=== PATIENT | female | born 1950 | race Caucasian/White ===

== ENCOUNTER 2019-05-05 07:44 | Outpatient (CLI) | payer MEDICARE, MEDICAID, SELFPAY ==
[2019-05-05 13:36] LABS: Alanine Aminotransferase 19 U/L (4-35); Albumin Level 3.4 g/dL (3.5-5.1); Alkaline Phosphatase 85 U/L (38-126); Aspartate Amino Transferase 27 U/L (14-36); Bilirubin,Total 0.3 mg/dL (0.2-1.3); Blood Urea Nitrogen 22 mg/dL (7-17); Calcium 8.5 mg/dL (8.4-10.2); Carbon Dioxide 31 mmol/L (22-30); Chloride 98 mmol/L (98-107); Cholesterol 111 mg/dL (0-200); Estimated Glomerular Filt Rate 44; Glucose 277 mg/dL (65-105); HDL Direct 33 mg/dL; Sodium 138 mmol/L (137-145); Triglycerides 126 mg/dL (<150)
[2019-05-05 13:39] LABS: Basophils Percent Auto 0.4 % (0.2-1.2); Eosinophils Absolute Auto 0.5 K/mm3 (0-0.3); Eosinophils Percent Auto 6.2 % (0-4.4); Hematocrit 37.9 % (37.0-47.0); Hemoglobin 10.9 g/dL (12.0-15.0); Immature Granulocyte Absolute 0.07 K/mm3 (0.00-0.031); Immature Granulocyte Percent A 0.9 % (0-0.5); Lymphocytes Absolute Auto 1.37 K/mm3 (0.9-3.2); Lymphocytes Percent Auto 16.7 % (18.3-44.2); Mean Corpuscular HGB Conc 28.8 g/dl (32-36); Mean Corpuscular Hemoglobin 27.6 pg (26-34); Mean Corpuscular Volume 95.9 fl (80-100); Mean Platelet Volume 10.9 fl (7.4-10.4); Monocytes Absolute Auto 0.6 K/mm3 (0.1-0.6); Monocytes Percent Auto 7.5 % (2.6-8.5); Neutrophils Absolute Auto 5.6 K/mm3 (1.3-6.7); Neutrophils Percent Auto 68.3 % (45.5-73.1); Platelet Count Result 162 k/mm3 (150-375); Red Blood Count 3.95 M/mm3 (4.2-5.4); Red Cell Distribution Width 14.6 % (11.5-14.5); White Blood Count 8.2 K/mm3 (4.5-10.0)
[2019-05-05 13:47] LABS: LDL Cholesterol Direct 69 mg/dL
[2019-05-05 13:52] LABS: Hemoglobin A1C 9.7 % (<5.7)
[2019-05-05 13:54] LABS: Free T4 Free Thyroxine 0.92 ng/mL (0.78-2.19)
[2019-05-06 14:23] LABS: Thyroid Stimulating Immunoglob <89 % baseline (<140)
[2019-05-07 03:06] LABS: Thyroid Peroxidase Antibodies <1 IU/mL (<9)
[2019-05-07 05:03] LABS: Triiodothyronine T3 Free 2.7 pg/mL (2.3-4.2)
== END 2019-05-05 07:45 | disposition home or self-care (01) ==
LOC: ANHWCLAB 07:48
PROVIDERS: PCP Internal Medicine Endocrinology, Diabetes & Metabolism; Referring Provider Internal Medicine Endocrinology, Diabetes & Metabolism
DX: E11.65 Type 2 diabetes mellitus with hyperglycemia (principal); E78.5 Hyperlipidemia, unspecified; E03.9 Hypothyroidism, unspecified
CPT/HCPCS: 36415; 80053; 80061; 83036; 84439; 84443; 84445; 84481; 85025; 86376

== ENCOUNTER 2019-10-17 13:32 | Outpatient (CLI) | payer MEDICARE, MEDICAID, SELFPAY ==
--- NOTE | ~2019-10-17 | MMUS_ITS ---
EXAMINATION: MM diagnostic adis BI w alexandra, US breast RT limited HISTORY: Right breast mass TECHNIQUE: Full field bilateral and spot right 3-D tomosynthesis images were performed and synthetic 2-D images were generated. CAD analysis was submitted and interpreted. High resolution targeted right breast ultrasound was performed. COMPARISON: 12/26/2016 bilateral diagnostic digital mammogram BREAST PARENCHYMAL COMPOSITION: There are scattered areas of fibroglandular density. FINDINGS: MAMMOGRAPHIC FINDINGS: On the left there is evidence of residual previously reported seroma far posteriorly in the central b reast. There is an irregular approximately 13 x 14.7 x 18.8 mm mass at mid to posterior depth in the inner a spect of the upper inner quadrant of the right breast not far from mid sagittal plane. The mammograph ic appearance is suspicious. No skin thickening or retraction or malignant calcification of either breast is evident. ULTRASOUND: There is an irregular hypoechoic mass at 12:00 4 cm from the nipple, corresponding to the mammographi c finding, measuring up to approximately 13 x 18 mm dimension, with posterior shadowing and some inte rnal vascularity on color flow imaging. IMPRESSION: 1. 1.8 cm suspicious mass at 12:00 4 cm from nipple. 2. Ultrasound-guided biopsy is recommended. BI-RADS category 4, suspicious findings. Dr. Hay telephoned the report and ultrasound-guided right breast biopsy recommendation to Dr. Randee cherry on 10/17/2019 at 1532 hours Reviewed, dictated and finalized at location A. IMPRESSION: 1. 1.8 cm suspicious mass at 12:00 4 cm from nipple. 2. Ultrasound-guided biopsy is recommended. BI-RADS category 4, suspicious findings. Dr. Hay telephoned the report and ultrasound-guided right breast biopsy recomm endation to Dr. Luis on 10/17/2019 at 1532 hours
== END 2019-10-17 13:33 | disposition home or self-care (01) ==
PROVIDERS: PCP Physician Assistant; Visit Provider Physician Assistant
DX: N63.10 Unspecified lump in the right breast, unspecified quadrant (principal); R92.8 Other abnormal and inconclusive findings on diagnostic imaging of breast
CPT/HCPCS: 76642; 77062; 77066; G0279

== ENCOUNTER 2019-11-03 09:20 | Outpatient (CLI) | payer MEDICARE, MEDICAID, SELFPAY ==
--- NOTE | ~2019-11-03 | US_ITS ---
EXAMINATION: US GUIDED NEEDLE BIOPSY DATE: 11/03/2019 11:37 CDT INDICATION: Irregular hypoechoic 13 x 18 mm mass at 12:00 4 cm from nipple TECHNIQUE AND FINDINGS: The risks and potential benefits of the procedure were discussed with the patient, and written inform ed consent was obtained. Timeout procedure was performed. After sterile preparation of the right luanne st, 1% lidocaine was utilized for local anesthesia. A 14G spring-loaded biopsy gun needle was advanced to the edge of the region of interest from a media l approach utilizing sonographic guidance. A total of three tissue core samples were obtained throug h the lesion. An Inrad tissue marker clip was then placed at the biopsy site. Hemostasis was achieve d. A sterile bandage was applied. The patient tolerated procedure well and there was no evidence of immediate complication. The patien t was given verbal instructions prior to departing from the department. A two view mammogram was perf ormed to document tissue marker clip placement. The tissue samples were submitted to surgical patholo gy for histologic analysis. IMPRESSION: 1. Successful ultrasound guided biopsy of left 12:00 breast mass with biopsy marker placement. Sandra hope refer to pathology report for histologic analysis. Reviewed, dictated and finalized at [facility]. Reviewed, dictated and finalized at location A. IMPRESSION: 1. Successful ultrasound guided biopsy of left 12:00 breast mass with biopsy m arker placement. Please refer to pathology report for histologic analysis.
--- NOTE | ~2019-11-03 | MM_ITS ---
MM post biopsy diagnostic RT DATE: 11/03/2019 11:09 INDICATION: Post ultrasound-guided biopsy mammogram TECHNIQUE: Digital LM and cc views of right breast following ultrasound-guided biopsy of 12:00 right breast lesion COMPARISON: None FINDINGS: There is a trigger biopsy marker in the upper mid right breast with some adjacent subcutane ous emphysema and soft tissue density which may be secondary to mild hematoma. IMPRESSION: Status post ultrasound-guided biopsy of 12:00 right breast lesion Reviewed, dictated and finalized at Location [facility]. Reviewed, dictated and finalized at location A.
== END 2019-11-03 09:21 | disposition home or self-care (01) ==
PROVIDERS: PCP Physician Assistant; Visit Provider Physician Assistant
DX: R92.8 Other abnormal and inconclusive findings on diagnostic imaging of breast (principal)
CPT/HCPCS: 19083; 77065; 88305; A4648

== ENCOUNTER 2019-11-29 08:03 | Outpatient (CLI) | payer MEDICARE, MEDICAID, SELFPAY ==
[2019-11-29 09:07] LABS: Alanine Aminotransferase 13 U/L (4-35); Albumin Level 4.1 g/dL (3.5-5.1); Alkaline Phosphatase 77 U/L (38-126); Anion Gap 7 mmol/L (8-16); Aspartate Amino Transferase 27 U/L (14-36); Bilirubin,Total 0.3 mg/dL (0.2-1.3); Blood Urea Nitrogen 29 mg/dL (7-17); Calcium 8.9 mg/dL (8.4-10.2); Carbon Dioxide 37 mmol/L (22-30); Chloride 95 mmol/L (98-107); Cholesterol 106 mg/dL (0-200); Estimated Glomerular Filt Rate 32; Glucose 156 mg/dL (65-105); HDL Direct 26 mg/dL; Potassium 4.6 mmol/L (3.4-5.0); Sodium 139 mmol/L (137-145); Triglycerides 127 mg/dL (<150)
[2019-11-29 09:21] LABS: LDL Cholesterol Direct 52 mg/dL
[2019-11-29 09:45] LABS: Free T4 Free Thyroxine 1.05 ng/mL (0.78-2.19)
[2019-11-29 09:48] LABS: Creatinine Urine 23.8 mg/dL
[2019-11-29 09:53] LABS: MALB Creatinine Ratio 106.7 mg/g (0-30); Microalbumin Urine Random 25.4 mg/L (0-16.7)
[2019-11-29 10:10] LABS: Hemoglobin A1C 7.7 % (<5.7)
== END 2019-11-29 08:04 | disposition home or self-care (01) ==
LOC: ANHLAB 08:12
PROVIDERS: PCP Physician Assistant; Visit Provider Internal Medicine Endocrinology, Diabetes & Metabolism
DX: E11.65 Type 2 diabetes mellitus with hyperglycemia (principal); E03.9 Hypothyroidism, unspecified
CPT/HCPCS: 36415; 80053; 80061; 82043; 83036; 84439; 84443

== ENCOUNTER 2020-03-25 13:17 | Emergency (ER) | payer MEDICARE, MEDICAID, SELFPAY ==
--- NOTE | ~2020-03-25 | XR_ITS ---
XR knee RT 3V 03/25/2020 13:48 Indication: Lateral knee pain Procedure: 3 views of the right knee Comparison: 01/10/2016 Findings: No acute fracture, subluxation or dislocation. There is moderate-severe osteoarthritis of t he right knee. There are large degenerative subchondral cyst involving the medial femoral condyle med ial tibial plateau. No significant joint effusion. Impression: 1: Severe osteoarthritis of the right knee with developing subchondral cyst medially. 2: No acute fracture. Reviewed, dictated and finalized at location A. ETING COMPLIANCE MANAGER Impression: 1: Severe osteoarthritis of the right knee with developing subchondral cyst med ially. 2: No acute fracture.
[2020-03-25 13:18] VITALS: BP 149/54; PULSE 89; RESP 17; TEMP 37; O2SAT 98
--- NOTE | 2020-03-25 13:43 | ED.LOWEXIN ---
HPI - Extremity Injury (Lower) General Chief Complaint: Extremity Injury, Lower Stated Complaint: WANTS X RAY Time Seen by Provider: 03/25/20 13:29 Source: patient Mode of arrival: EMS Limitations: no limitations History of Present Illness HPI Narrative: Patient 69-year-old female complain right knee pain, 8 out of 10, aching, nonradiating started yesterday after she slipped and fell landing on her right knee. Patient denies any head, neck, back, chest or any other extremity pain/injury. Patient denies any loss of consciousness. Related Data Home Medications Medication Instructions Recorded Confirmed albuterol sulfate [Ventolin HFA] 2 puff INHALATION PRN PRN 03/26/19 03/26/19 alprazolam 0.25 mg PO PRN PRN 03/26/19 03/26/19 lenny citrate-mag ox,aspart-D3 1 tablet PO DAILY 03/26/19 03/26/19 clopidogrel 75 mg PO DAILY 03/26/19 03/31/19 ferrous sulfate [Iron (ferrous 325 mg PO DAILY 03/26/19 03/26/19 sulfate)] furosemide 80 mg PO DAILY 03/26/19 03/26/19 insulin regular hum U-500 conc 25 unit SUBCUT BID 03/26/19 03/26/19 [Humulin R U-500 (Conc) Insulin] isosorbide mononitrate 120 mg PO DAILY 03/26/19 03/26/19 levothyroxine 88 mcg PO DAILY 03/26/19 03/26/19 meloxicam 15 mg PO DAILY 03/26/19 03/26/19 metoprolol succinate 50 mg PO DAILY 03/26/19 03/31/19 potassium chloride 10 meq PO DAILY 03/26/19 03/26/19 ropinirole 2 mg PO BID 03/26/19 03/26/19 rosuvastatin 40 mg PO DAILY 03/26/19 03/26/19 tiotropium bromide [Spiriva 1.25 mcg INHALATION DAILY 03/26/19 03/26/19 Respimat] Allergies Allergy/AdvReac Type Severity Reaction Status Date / Time adhesive tape Allergy Severe BLISTERS Verified 03/25/20 13:24 propoxyphene Allergy Severe Nausea and Verified 03/25/20 13:24 [From Twin-Tami] Vomiting Review of Systems Review of Systems: All systems reviewed & are unremarkable except as noted in HPI and below Constitutional: Constitutional: Denies body ache(s), Denies chills, Denies excessive sweating, Denies fatigue, Denies fever(s), Denies headache(s), Denies lethargy, Denies malaise, Denies weakness and Denies weight loss Eyes: Eyes: Denies blurry vision, Denies change in vision and Denies loss of vision ENT: Denies dizziness, Denies ear discharge, Denies headache(s), Denies lip swelling, Denies epistaxis, Denies nasal congestion, Denies neck pain, Denies throat swelling and Denies tongue swelling Cardiovascular: Cardiovascular: Denies chest pain, Denies chest pain at rest, Denies chest pain with activity, Denies diaphoresis, Denies rapid heart rate, Denies edema, Denies irregular heart rhythm, Denies lightheadedness, Denies palpitations, Denies dyspnea and Denies dyspnea on exertion Respiratory: Respiratory: Denies chest congestion, Denies cough, Denies hemoptysis, Denies dyspnea and Denies dyspnea on exertion Gastrointestinal: Gastrointestinal: Denies abdominal pain, Denies melena, Denies hematochezia, Denies diarrhea, Denies nausea, Denies vomiting and Denies hematemesis Musculoskeletal: Musculoskeletal: Denies neck pain and Denies numbness Neurologic: Denies Abnormal speech present, Denies abnormal gait, Denies confusion, Denies dizziness, Denies headache(s), Denies focal weakness, Denies loss of vision, Denies numbness, Denies Other visual disturbances, Denies Sensory deficit (Neuro) and Denies weakness Psychiatric: Psychiatric: Denies confusion, Denies depression, Denies auditory hallucinations, Denies homicidal ideation and Denies suicidal ideation Endocrine: Endocrine: Denies cold intolerance, Denies excessive sweating, Denies fatigue, Denies heat intolerance and Denies palpitations Hematologic/Lymphatic: Hematologic/Lymphatic: Denies easy bleeding and Denies easy bruising Allergic/Immunologic: Allergic/Immunologic: Denies lip swelling, Denies throat swelling and Denies tongue swelling [facility] Past Medical History Medical History (Updated 03/25/20 @ 14:53 by Antoni Nguyen MD) Anxiety Asthma CAD (coronary artery di
[2020-03-25] MEDS: HYDROcodone/acetaminophen (*CRX) 5-325 MG TABLET 1 TAB PO (14:31)
[2020-03-25] MEDS: KETOROLAC 30 MG/ML VIAL (*BKC) IM (14:31)
== END 2020-03-25 15:25 | disposition home or self-care (01) ==
PROVIDERS: Emergency Provider Emergency Medicine; PCP Physician Assistant
DX: S80.01XA Contusion of right knee, initial encounter (principal); W01.0XXA Fall on same level from slipping, tripping and stumbling without subsequent striking against object, initial encounter; I25.10 Atherosclerotic heart disease of native coronary artery without angina pectoris; I11.0 Hypertensive heart disease with heart failure; I50.9 Heart failure, unspecified; J44.9 Chronic obstructive pulmonary disease, unspecified; K21.9 Gastro-esophageal reflux disease without esophagitis; Z85.3 Personal history of malignant neoplasm of breast; Z86.718 Personal history of other venous thrombosis and embolism; E78.5 Hyperlipidemia, unspecified; E03.9 Hypothyroidism, unspecified; E11.40 Type 2 diabetes mellitus with diabetic neuropathy, unspecified; G47.33 Obstructive sleep apnea (adult) (pediatric); Z95.5 Presence of coronary angioplasty implant and graft; F41.9 Anxiety disorder, unspecified
CPT/HCPCS: 73562; 96372; 99283; A9270; J1885

== ENCOUNTER 2020-09-08 18:48 | Observation (INO) | payer MEDICARE, MEDICAID, SELFPAY ==
[2020-09-08] VITALS (8 sets, daily range): BP systolic 104–133; BP diastolic 42–74; PULSE 70–80; RESP 14–20; TEMP 36.8–37; O2SAT 94–100
--- NOTE | ~2020-09-08 | XR_ITS ---
EXAMINATION: XR chest 1V DATE: 09/08/2020 19:41 INDICATION: Chronic obstructive pulmonary disease. TECHNIQUE: A single frontal view of the chest was obtained. COMPARISON: Chest 2 views 12/13/2018, CT abdomen and pelvis 12/14/2018 FINDINGS: There are airspace opacities in the lower lung zones. No pleural effusion or pneumothorax. Cardiomegaly is noted. Median sternotomy wires and mediastinal surgical clips are seen, likely from p rior coronary artery bypass grafting. There are prominent paracardial fat pads. There are changes of anterior fusion procedure in cervical spine. There is a left shoulder arthroplasty. IMPRESSION: 1. Airspace opacities in the lower lung zones, consistent with atelectasis versus pneumonia. 2. Cardiomegaly. Reviewed, dictated and finalized at location A. IMPRESSION: 1. Airspace opacities in the lower lung zones, consistent with atelectasis vers us pneumonia. 2. Cardiomegaly.
--- NOTE | ~2020-09-08 | CT_ITS ---
EXAMINATION: CT cervical spine wo con DATE: 09/08/2020 19:28 INDICATION: Neck injury. TECHNIQUE: Computed tomography (CT) of the cervical spine was performed without intravenous contrast. Automated exposure control and iterative reconstruction technique were employed. The dose-length pro duct was 452.35 mGy-cm. COMPARISON: None FINDINGS: The lung apices demonstrate emphysema. There is 5 degrees levocurvature of cervical spine. There are changes of anterior fusion procedure from C4 to C6 with discectomies, healed interbody bone graft, and anterior plate and screws. There is mildly decreased disc height at C3-C4. The following disc levels are specifically discussed: C2-C3: There is no uncovertebral joint osteoarthritis. There is severe bilateral facet joint osteoart hritis. There is no neural foraminal stenosis. There is no central canal stenosis. C3-C4: There is severe bilateral uncovertebral joint osteoarthritis. There is severe bilateral facet joint osteoarthritis. There is mild bilateral neural foraminal stenosis. There is mild central canal stenosis. C4-C5: There is no uncovertebral joint hypertrophy. There is moderate left facet joint hypertrophy. T here is mild left neural foraminal stenosis. There is no central canal stenosis. C5-C6: There is mild bilateral uncovertebral joint hypertrophy. There is moderate bilateral facet jayne nt hypertrophy. There is mild bilateral neural foraminal stenosis. There is no central canal stenosis . C6-C7: There is no uncovertebral joint osteoarthritis. There is severe bilateral facet joint osteoart hritis. There is mild bilateral neural foraminal stenosis. There is no central canal stenosis. C7-T1: There is no uncovertebral joint osteoarthritis. There is severe bilateral facet joint osteoart hritis. There is mild right neural foraminal stenosis. There is no central canal stenosis. IMPRESSION: 1. No fracture. 2. Anterior fusion procedure from C4 to C6. 3. Mild cervical spondylosis. Reviewed, dictated and finalized at location A.
--- NOTE | ~2020-09-08 | XR_ITS ---
EXAMINATION: XR pelvis 1-2V DATE: 09/08/2020 19:40 INDICATION: Pelvic pain. TECHNIQUE: An anteroposterior view of the pelvis was obtained. COMPARISON: None. FINDINGS: Bone alignment is normal. No fracture. There is mild osteoarthritis of the hips. IMPRESSION: 1. Mild osteoarthritis of the hips. Reviewed, dictated and finalized at location A.
--- NOTE | ~2020-09-08 | CT_ITS ---
EXAMINATION: CT abdomen pelvis w con DATE: 09/11/2020 14:43 INDICATION: Anemia. TECHNIQUE: Computed tomography (CT) of the abdomen and pelvis was performed with 100 mm Omnipaque 350 intravenous contrast. Automated exposure control and iterative reconstruction technique were employe d. The dose-length product was 1489.81 mGy-cm. COMPARISON: CT abdomen and pelvis 01/13/2019, mammogram 10/17/2019 FINDINGS: The visualized portions of the lung bases demonstrate mild atelectasis. There is a 2.4 cm n odule in right lower lobe. A calcified right lung nodule and calcified right hilar and mediastinal ly mph nodes are consistent with old granulomatous disease. Cardiomegaly is noted. There are coronary ar helene calcifications. No pericardial effusion. Partially visualized is a 5.0 x 3.7 cm mass in left chary ast. Median sternotomy wires are noted. The liver and spleen are normal. There are changes of cholecy stectomy. The pancreas and right adrenal gland are normal. There is a 13 mm mass in left adrenal glan d, stable from 01/13/2019, likely an adenoma. There is cortical thinning of the kidneys. There are no dilated loops of bowel. The appendix not visualized. There are changes of subxiphoid ventral hernia repair. There is chronic sternal dehiscence. There are no pathologically enlarged lymph nodes. There is no free intraperitoneal fluid. Pelvic floor relaxation is noted. There is soft tissue attenuation in the subcutaneous fat in the left flank, likely hematoma. There is widespread fat stranding of the body wall, likely edema and inflammation/scarring. There is severe lumbar spondylosis. There is moder ate lumbar spondylosis. IMPRESSION: 1. 2.4 cm nodule in right lung lower lobe, consistent with primary bronchogenic carcinoma versus meta static disease. 2. Partially visualized 5.0 x 3.7 cm mass in left breast, new from 10/17/2019. Ultrasound is recommend ed. 3. Subcutaneous hematoma in left flank. Reviewed, dictated and finalized at location A. IMPRESSION: 1. 2.4 cm nodule in right lung lower lobe, consistent with primary bronchogenic carcinoma versus metastatic disease. 2. Partially visualized 5.0 x 3.7 cm mass in left breast, new from 10/17/2019. U ltrasound is recommended. 3. Subcutaneous hematoma in left flank.
--- NOTE | ~2020-09-08 | US_ITS ---
US breast LT limited 09/13/2020 12:41 Indication: Left breast mass seen on recent CT examination Procedure: High-resolution Limited ultrasound of the left breast Comparison: No prior studies for comparison. Findings: At 12:00, 4 cm from the nipple, there is a complex hypoechoic mass measuring 4.5 x 3.9 x 3. 4 cm with mixed posterior attenuation and no significant internal vascularity. Impression: 1: Complex left breast mass measuring 4.5 cm greatest dimension. Diagnostic bilateral mammogram recom mended for complete evaluation. BI-RADS CATEGORY 0 - INCOMPLETE STUDY, NEED ADDITIONAL IMAGING EVALUATION. Reviewed, dictated and finalized at location A. Impression: 1: Complex left breast mass measuring 4.5 cm greatest dimension. Diagnostic hair ateral mammogram recommended for complete evaluation. BI-RADS CATEGORY 0 - INCOMPLETE STUDY, NEED ADDITIONAL IMAGING EVALUATION.
--- NOTE | ~2020-09-08 | CT_ITS ---
EXAMINATION: CT brain wo con DATE: 09/08/2020 19:28 INDICATION: Head injury. TECHNIQUE: Computed tomography (CT) of the head was performed without intravenous contrast. The mA wa s adjusted according to patient size. Iterative reconstruction technique was employed. The dose-lengt h product was 452.35 mGy-cm. COMPARISON: Head CT 08/29/2014 FINDINGS: There is no intracranial hemorrhage, acute infarction, or abnormal intracranial mass lesion . The ventricles are normal in size. There is mild mucosal thickening in the paranasal sinuses. There are likely changes of ocular lens replacement surgeries. There is a right mastoid effusion. IMPRESSION: 1. Normal brain. Reviewed, dictated and finalized at location A. IMPRESSION: 1. Normal brain.
--- NOTE | ~2020-09-08 | XR_ITS ---
EXAMINATION: XR knee LT min 4V DATE: 09/08/2020 19:40 INDICATION: Left knee pain. TECHNIQUE: 4 views of left knee were obtained. COMPARISON: Left knee radiographs 01/10/16 FINDINGS: There is varus angulation at the knee. No fracture. There is severe osteoarthritis of media l compartment, mild osteoarthritis of lateral compartment, moderate osteoarthritis of patellofemoral compartment. No knee joint effusion. IMPRESSION: 1. Severe left knee osteoarthritis. Reviewed, dictated and finalized at location A.
--- NOTE | ~2020-09-08 | CT_ITS ---
EXAMINATION: CT diagnostic chest wo con DATE: 09/12/2020 13:58 INDICATION: Right lung mass TECHNIQUE: Computed tomography (CT) of the chest was performed without intravenous contrast. The dose -length product was 810.48 mGy-cm. Automated exposure control and iterative reconstruction technique were employed. COMPARISON: CT chest dated 04/25/[address] abdomen dated 09/11/2020 FINDINGS: There is a mass in the left breast measuring 4.8 x 4.4 x 3.8 cm, concerning for breast canc er. Mediastinal lymphadenopathy, for instance right paratracheal lymph node measures 11 mm short axis , image 40. There are calcified subcarinal lymph nodes, consistent with chronic granulomatous disease . Cardiomegaly. There is moderate emphysema. There is a right lower lobe mass measuring 2.9 x 1.8 cm, concerning for bronchogenic carcinoma. Small pleural effusions. There is dependent airspace consolid ation in the lower lobes. Cannot exclude superimposed pneumonia. There are surgical changes in the up per abdomen, consistent with ventral abdominal wall hernia. There are cholecystectomy clips. There ar e a few scattered small 2 mm nodules bilaterally, likely benign. No endobronchial lesions. No pneumot horax. IMPRESSION: 1. 2.9 cm right lower lobe mass, concerning for bronchogenic carcinoma versus metastatic disease. 2: Left breast mass measuring 4.8 cm, suspicious for carcinoma. Recommend correlation with diagnostic mammogram and ultrasound when the patient's condition permits. 3: Bilateral lower lobe consolidation which likely represents atelectasis and/or superimposed pneumo jerson. 4: Small pleural effusions. 5: Emphysema. 6: Nonspecific mediastinal lymphadenopathy, likely reactive. Reviewed, dictated and finalized at location A. IMPRESSION: 1. 2.9 cm right lower lobe mass, concerning for bronchogenic carcinoma versus m etastatic disease. 2: Left breast mass measuring 4.8 cm, suspicious for carcinoma. Recommend corre lation with diagnostic mammogram and ultrasound when the patient's condition pe rmits. 3: Bilateral lower lobe consolidation which likely represents atelectasis and/ or superimposed pneumonia. 4: Small pleural effusions. 5: Emphysema. 6: Nonspecific mediastinal lymphadenopathy, likely reactive.
--- NOTE | 2020-09-08 18:56 | ECG_ITS ---
Measurements Intervals [place] Rate: 66 P: 88 ME: 182 QRS: -3 QRSD: 85 T: 69 QT: 394 QTc: 416 Interpretive Statements SINUS RHYTHM DELAYED PRECORDIAL R/S TRANSITION BASELINE ARTIFACT- I, II, AVR, AVL V2, V5 BORDERLINE ECG Electronically Signed On 09-08-2020 21:40:10 CDT by Jelani Mckinnon D.O.
--- NOTE | 2020-09-08 19:09 | ED.SOB ---
HPI - SOB/Dyspnea General Chief Complaint: Shortness of Breath/Dyspnea Stated Complaint: anemic Source: RN notes reviewed History of Present Illness HPI Narrative: Patient presents emergency department from home via EMS for weakness. Patient states he was feeling weak for the past 2 days. States that she has a history of anemia and is required blood transfusions before in the past and feels the same as prior states that her daughter also felt she was more pale today patient states she has been able to get up and around like she normally does states that she is normally on 3 L nasal cannula at all times. Patient states she did fall approximately 4 days ago injuring her left knee she does note some neck pain but denies any loss of consciousness denies any chest pain. Does note increased shortness of breath with ambulation Related Data Home Medications Medication Instructions Recorded Confirmed albuterol sulfate [Ventolin HFA] 2 puff INHALATION PRN PRN 03/26/19 03/26/19 alprazolam 0.25 mg PO PRN PRN 03/26/19 03/26/19 lenny citrate-mag ox,aspart-D3 1 tablet PO DAILY 03/26/19 03/26/19 clopidogrel 75 mg PO DAILY 03/26/19 03/31/19 ferrous sulfate [Iron (ferrous 325 mg PO DAILY 03/26/19 03/26/19 sulfate)] furosemide 80 mg PO DAILY 03/26/19 03/26/19 insulin regular hum U-500 conc 25 unit SUBCUT BID 03/26/19 03/26/19 [Humulin R U-500 (Conc) Insulin] isosorbide mononitrate 120 mg PO DAILY 03/26/19 03/26/19 levothyroxine 88 mcg PO DAILY 03/26/19 03/26/19 meloxicam 15 mg PO DAILY 03/26/19 03/26/19 metoprolol succinate 50 mg PO DAILY 03/26/19 03/31/19 potassium chloride 10 meq PO DAILY 03/26/19 03/26/19 ropinirole 2 mg PO BID 03/26/19 03/26/19 rosuvastatin 40 mg PO DAILY 03/26/19 03/26/19 tiotropium bromide [Spiriva 1.25 mcg INHALATION DAILY 03/26/19 03/26/19 Respimat] Allergies Allergy/AdvReac Type Severity Reaction Status Date / Time adhesive tape Allergy Severe BLISTERS Verified 09/08/20 18:59 propoxyphene AdvReac Severe Nausea and Verified 09/08/20 20:33 [From Darvocet-N] Vomiting Review of Systems Review of Systems: Narrative: Gen.: Denies fevers or chills Eyes: Denies eye pain or visual change ENT: Denies congestion Respiratory: Reports shortness of breath with ambulation CV: Denies chest pain or palpitations GI: Denies abdominal pain nausea, emesis or diarrhea Musculoskeletal: Denies back pain or muscle pain Neuro: Reports weakness Skin: Denies rash Except as documented, all other systems reviewed and negative [facility] Past Medical History Medical History Anxiety Asthma CAD (coronary artery disease) CHF (congestive heart failure) COPD (chronic obstructive pulmonary disease) Diabetes type 2, controlled FH: ALMITA-BSO (total abdominal hysterectomy and bilateral salpingo-oophorectomy) GERD (gastroesophageal reflux disease) History of hearing loss History of home oxygen therapy Hx of breast cancer Hx of cataract Hx of deep venous thrombosis Hyperlipidemia Hypertension Hypothyroidism Neuropathy TOR (obstructive sleep apnea) Surgical History Surgical History (Updated 03/31/19 @ 11:08 by Kanwal Sheppard, GEODETIC ENGINEER) H/O rectocele repair History of coronary artery stent placement History of tubal ligation Hx of CABG Hx of CABG Hx of carpal tunnel repair Hx of cholecystectomy Hx of hernia repair Hx of lumpectomy Status post cervical spinal fusion Family History Family History (Updated 01/10/16 @ 14:14 by DOCTOR UNKNOWN) Father Family history of malignant neoplasm of stomach Family history of malignant neoplasm Malignant neoplasm of prostate Family history of heart disease in male family member before age 55 Mother Family history of lung cancer Family history of diabetes mellitus in first degree relative Family history of heart disease in male family member before age 55 Sibling Family history of heart disease in male family member before age 55 Oth
--- NOTE | 2020-09-08 19:17 | PC.NURSE ---
Pt. to ct. no urine or blood obtained.
[2020-09-08 19:53] LABS: Basophils Percent Auto 0.3 % (0.2-1.2); Eosinophils Absolute Auto 0.3 K/mm3 (0-0.3); Eosinophils Percent Auto 4.3 % (0-4.4); Hematocrit 23.5 % (37.0-47.0); Immature Granulocyte Absolute 0.02 K/mm3 (0.00-0.031); Immature Granulocyte Percent A 0.3 % (0-0.5); Lymphocytes Absolute Auto 1.55 K/mm3 (0.9-3.2); Lymphocytes Percent Auto 20.7 % (18.3-44.2); Mean Corpuscular HGB Conc 27.2 g/dl (32-36); Mean Corpuscular Hemoglobin 25.7 pg (26-34); Mean Corpuscular Volume 94.4 fl (80-100); Mean Platelet Volume 9.5 fl (7.4-10.4); Monocytes Absolute Auto 0.6 K/mm3 (0.1-0.6); Monocytes Percent Auto 7.7 % (2.6-8.5); Neutrophils Percent Auto 66.7 % (45.5-73.1); Platelet Count Result 147 k/mm3 (150-375); Red Blood Count 2.49 M/mm3 (4.2-5.4); Red Cell Distribution Width 13.2 % (11.5-14.5); White Blood Count 7.5 K/mm3 (4.5-10.0)
[2020-09-08 20:04] LABS: Prothrombin Time 13.8 Seconds (11.1-14.7)
[2020-09-08 20:05] LABS: Partial Thromboplastin Time 28.4 SECONDS (22.3-36.8)
[2020-09-08 20:06] LABS: Alanine Aminotransferase 13 U/L (4-35); Albumin Level 3.6 g/dL (3.5-5.1); Alkaline Phosphatase 72 U/L (38-126); Anion Gap 3 mmol/L (8-16); Aspartate Amino Transferase 20 U/L (14-36); Bilirubin,Total 0.5 mg/dL (0.2-1.3); Blood Urea Nitrogen 21 mg/dL (7-17); Calcium 9.2 mg/dL (8.4-10.2); Carbon Dioxide 37 mmol/L (22-30); Chloride 100 mmol/L (98-107); Estimated Glomerular Filt Rate 49; Glucose 120 mg/dL (65-105); Hemoglobin 6.4 g/dL (12.0-15.0); Potassium 5.3 mmol/L (3.4-5.0); Sodium 140 mmol/L (137-145)
[2020-09-08 20:08] LABS: Hypochromasia 1+ (NORMAL); Ovalocytes 1+ (NORMAL); Platelet Estimate Adequate (Adequate)
[2020-09-08 20:32] LABS: Add Urine Microscopic? YES; Appearance Urine Cloudy (Clear); Bacteria Urine Trace /hpf; Bilirubin Urine Negative (Negative); Blood Urine Negative (Negative); Color Urine Yellow (Yellow); Glucose Urine UA Negative (Negative); Ketones Urine Negative (Negative); Leukocyte Esterase Ur 3+ LEU/UL (Negative); Mucus Urine Rare /lpf; Nitrate Urine Positive (Negative); Protein Urine 1+ mg/dL (Negative); Specific Grav Ur 1.019 (1.001-1.035); Squamous Epithelial Cell Urine Rare /hpf (Few); Urobilinogen Urine Negative mg/dL (<2.0); WBC Clumps Urine Present /HPF; WBC Urine >75 /hpf
--- NOTE | 2020-09-08 22:07 | PM.IMHP ---
H&P: HPI History of Present Illness Date/Time: 09/08/20 22:07 Chief Complaint: Fall. Narrative: This is a 70-year-old female with past medical history significant for coronary artery disease status post coronary artery bypass graft in 2007, congestive heart failure coma type 2 diabetes mellitus, obstructive sleep apnea, chronic anemia, Hypertension, COPD. Patient presented to the emergency room via EMS after she has been feeling weak for several days now and she had a fall when she was trying to reach out for the bathroom was at the house called EMS patient was brought to the emergency room there was no loss of consciousness. She states that she has been feeling very weak fatigued with shortness of breath and dizzy and lightheaded for the last few days or so no chest pain preliminary workup was significant for a hemoglobin of 6 she has had blood transfusions in the past and states that her hemoglobin also see late and that she had looked more pale than her usual according to daughter daughter visited her. Patient has been placed in observation status for blood transfusion. Review of Systems Review of Systems: Narrative: Generalized weakness fatigue pallor fall Constitutional: Constitutional: Denies chills, Reports fatigue, Denies fever(s), Reports lethargy and Reports weakness Eyes: Eyes: Denies change in vision ENT: Denies nasal congestion, Denies nasal discharge and Denies nasal obstruction Cardiovascular: Cardiovascular: Denies irregular heart rhythm, Reports lightheadedness, Denies radiating jaw, neck or arm pain, Denies palpitations and Denies dyspnea on exertion Respiratory: Respiratory: Denies chest congestion Gastrointestinal: Gastrointestinal: Denies melena, Denies hematochezia, Reports constipation, Denies nausea and Denies vomiting Genitourinary: Genitourinary: Reports no additional female genitourinary complaints Musculoskeletal: Musculoskeletal: Reports no additional musculoskeletal complaints Integumentary/Breasts: Skin/Breast: Denies rash Neurologic: Denies focal weakness and Denies Sensory deficit (Neuro) Psychiatric: Psychiatric: Reports no additional psychiatric complaints Endocrine: Endocrine: Reports no additional endocrine complaints Hematologic/Lymphatic: Hematologic/Lymphatic: Reports no additional hematologic/lymphatic complaints Allergic/Immunologic: Allergic/Immunologic: Reports no additional allergic/immunologic complaints PMFSH Past Medical History Medical History (Updated 09/09/20 @ 01:26 by Genoveva Foster MD) Anxiety Asthma CAD (coronary artery disease) CHF (congestive heart failure) COPD (chronic obstructive pulmonary disease) Diabetes type 2, controlled FH: ALMITA-BSO (total abdominal hysterectomy and bilateral salpingo-oophorectomy) GERD (gastroesophageal reflux disease) History of hearing loss History of home oxygen therapy Hx of breast cancer Hx of cataract Hx of deep venous thrombosis Hyperlipidemia Hypertension Hypothyroidism Neuropathy TOR (obstructive sleep apnea) Surgical History Surgical History (Updated 03/31/19 @ 11:08 by Kanwal Sheppard APRN) H/O rectocele repair History of coronary artery stent placement History of tubal ligation Hx of CABG Hx of CABG Hx of carpal tunnel repair Hx of cholecystectomy Hx of hernia repair Hx of lumpectomy Status post cervical spinal fusion Family History Family History Father Family history of malignant neoplasm of stomach Family history of malignant neoplasm Malignant neoplasm of prostate Family history of heart disease in male family member before age 55 Mother Family history of lung cancer Family history of diabetes mellitus in first degree relative Family history of heart disease in male family member before age 55 Sibling Family history of heart disease in male family member before age 55 Other Cerebrovascular accident Diabetes mellitus Family hist
--- NOTE | 2020-09-08 22:17 | ADMGEN ---
This patient, Madison Celis, was admitted to [facility] Surg Room 323-02. Patient/family oriented to hospital policies and general routines including ID bracelet, bed and alarms, visiting hours, pain management, procedures, bathroom and other care routines, personal items, smoking policy, room service/diet, and visiting hours. Information on how to activate the Rapid Response Team has been discussed. Patient/Family are encouraged to report perceived risks to care and to ask questions if they do not understand what they are told or what they should do.
[2020-09-08] MEDS: SODIUM CHLORIDE 0.9% IV 250 ML 30 ML IV CONT (22:55)
[2020-09-09] VITALS (16 sets, daily range): BP systolic 104–148; BP diastolic 40–63; PULSE 70–88; RESP 18–20; TEMP 36.1–36.8; O2SAT 95–100
[2020-09-09] MEDS: ALPRAZolam (*CRX) 0.25 MG TABLET PO ×2 (00:42→20:25)
[2020-09-09] MEDS: rOPINIRole HCL 1 MG TABLET 3 MG PO ×2 (00:42→20:19)
[2020-09-09] MEDS: GABAPENTIN 300 MG CAPSULE PO ×4 (00:42→20:19)
[2020-09-09] MEDS: SODIUM CHLORIDE 0.9% IV 250 ML 30 ML (04:18)
[2020-09-09] MEDS: LEVOTHYROXINE SODIUM 100 MCG TABLET PO (04:19)
[2020-09-09] MEDS: ACETAMINOPHEN 500 MG TABLET 1000 MG PO (06:49)
[2020-09-09 08:35] LABS: Glucose Point of Care 156 mg/dl (65-105)
[2020-09-09 09:21] LABS: Basophils Percent Auto 0.3 % (0.2-1.2); Eosinophils Absolute Auto 0.3 K/mm3 (0-0.3); Eosinophils Percent Auto 3.8 % (0-4.4); Hemoglobin 8.7 g/dL (12.0-15.0); Immature Granulocyte Absolute 0.03 K/mm3 (0.00-0.031); Immature Granulocyte Percent A 0.4 % (0-0.5); Lymphocytes Absolute Auto 1.09 K/mm3 (0.9-3.2); Lymphocytes Percent Auto 15.4 % (18.3-44.2); Mean Corpuscular Hemoglobin 27.5 pg (26-34); Mean Corpuscular Volume 91.8 fl (80-100); Mean Platelet Volume 9.9 fl (7.4-10.4); Monocytes Absolute Auto 0.5 K/mm3 (0.1-0.6); Monocytes Percent Auto 6.3 % (2.6-8.5); Neutrophils Absolute Auto 5.2 K/mm3 (1.3-6.7); Neutrophils Percent Auto 73.8 % (45.5-73.1); Platelet Count Result 124 k/mm3 (150-375); Red Blood Count 3.16 M/mm3 (4.2-5.4); Red Cell Distribution Width 13.5 % (11.5-14.5); White Blood Count 7.1 K/mm3 (4.5-10.0)
--- NOTE | 2020-09-09 10:01 | WPDGICN ---
GI Consult Note Consult date/time: 09/09/20 10:01 HPI: Reason for consultation is anemia. This very pleasant lady seen in consultation at the request of the hospitalist. The patient was examined the chart review. Impression: Here very pleasant lady with anemia. The anemia may be multifactorial in origin. GI blood loss certainly needs to be excluded. She has a history of colonic AVMs which may be response for the blood loss. Her rectal bleeding is most likely perianal in origin. A small bowel source of blood loss needs to be excluded. Meloxicam use may also contribute to blood loss. Thrombocytopenia. History of adenomatous colon polyps. GERD. This is well controlled on medication. Anxiety. CAD. Status post stent placement. CHF. COPD. Diabetes mellitus. HTN. HLD. Hypothyroid. Neuropathy. History of breast cancer. Status post surgery and radiation treatment. Morbid obesity. Venous stasis. RLS. Recommendation: Anemia workup. Continue PPI. Will proceed with EGD with enteroscopy and colonoscopy. History: This very pleasant lady is well known to myself. She has a past medical history as mentioned above. Patient recently has been complaining of increased shortness of breath and dyspnea exertion. She had been having chills and weakness. The patient was found to have significant anemia. The anemia was more than her baseline. The patient denies any nausea, vomiting or hematemesis. She denies any dysphagia odynophagia. She has history reflux disease which is well controlled with medication. Patient had an EGD back in March of 2019. At that time she had some mild esophagitis and gastritis. She was H pylori negative. She also had a colonoscopy. She was noted to have some adenomatous colon polyps and some AVMs that required APC ablation. The patient at this time would report occasional rectal bleeding. It consisted of bright red blood per rectum when she would have straining. She has intensity constipation at times. Significant fever or weight loss night. She denies any melena. GI consultation was obtained for evaluation. The patient's review systems otherwise unremarkable except for the shortness of breath, dyspnea on exertion and weakness. Physical examination: General: very pleasant patient in no acute distress. HEENT: Head was normocephalic sclerae is clear mouth without masses neck was supple. Heart: Rate rhythm regular without S3 or S4. Lungs: Decreased breath sounds bilaterally. Abdomen: Soft with no guarding or rigidity. Bowel sounds were active. Obese. Neurologic: Cranial nerves 2 through 12 intact. No focal defects. No clonus. Musculoskeletal system: Revealed no joint tenderness or swelling no muscle atrophy. Extremities: Reveal no significant edema. Venous stasis changes. Skin: Warm and dry with normal turgor. Mental status: intact. Patient is alert and oriented. Thank you for allowing me to participate in the care of this interesting patient. Review of Systems Review of Systems: All systems reviewed & are unremarkable except as noted in HPI and below PMFSH Past Medical History Medical History (Updated 09/09/20 @ 10:06 by Stanford Rodríguez DO) Adenomatous colon polyp Anxiety Asthma AVM (arteriovenous malformation) of colon CAD (coronary artery disease) CHF (congestive heart failure) COPD (chronic obstructive pulmonary disease) Diabetes type 2, controlled DVT (deep venous thrombosis) GERD (gastroesophageal reflux disease) History of hearing loss History of home oxygen therapy Hx of breast cancer Hyperlipidemia Hypertension Hypothyroidism Neuropathy TOR (obstructive sleep apnea) RLS (restless legs syndrome) Venous stasis Surgical History Surgical History (Updated 09/09/20 @ 07:18 by Stanford Rodríguez DO) H/O colonoscopy H/O esophagogastroduodenoscopy H/O rectocele repair History of coronary artery stent placement History of tubal ligation Hx of CABG Hx of CAB
[2020-09-09 10:39] LABS: Folic Acid 6.8 ng/mL (2.76->20)
[2020-09-09 11:37] LABS: Hematocrit 29.9 % (37.0-47.0); Hemoglobin 8.8 g/dL (12.0-15.0); Immature Platelet Fraction Pct 4.7 % (0.9-11.2); Mean Corpuscular HGB Conc 29.4 g/dl (32-36); Mean Corpuscular Hemoglobin 26.7 pg (26-34); Mean Corpuscular Volume 90.9 fl (80-100); Mean Platelet Volume 10.7 fl (7.4-10.4); Platelet Count Result 150 k/mm3 (150-375); Red Blood Count 3.29 M/mm3 (4.2-5.4); Red Cell Distribution Width 13.6 % (11.5-14.5); White Blood Count 8.3 K/mm3 (4.5-10.0)
[2020-09-09 11:41] LABS: Cholesterol 106 mg/dL (0-200); HDL Direct 43 mg/dL; Lactate Dehydrogenase 320 U/L (313-618); Triglycerides 125 mg/dL (<150)
[2020-09-09 11:52] LABS: LDL Cholesterol Direct 38 mg/dL
[2020-09-09 12:01] LABS: Anion Gap 4 mmol/L (8-16); Blood Urea Nitrogen 17 mg/dL (7-17); Calcium 8.8 mg/dL (8.4-10.2); Carbon Dioxide 36 mmol/L (22-30); Chloride 97 mmol/L (98-107); Estimated Glomerular Filt Rate 55; Glucose 175 mg/dL (65-105); Magnesium 1.7 mg/dL (1.6-2.3); Phosphorus 3.9 mg/dL (2.5-4.5); Potassium 5.4 mmol/L (3.4-5.0); Sodium 137 mmol/L (137-145)
[2020-09-09 12:28] LABS: Glucose Point of Care 175 mg/dl (65-105)
[2020-09-09 12:30] LABS: Iron 68 ug/dL (37-170)
[2020-09-09 12:39] LABS: Percent Iron Saturation 16 % (20-50)
[2020-09-09 12:46] LABS: Folic Acid 7.8 ng/mL (2.76->20)
[2020-09-09 12:48] LABS: Free T4 Free Thyroxine 1.31 ng/mL (0.78-2.19)
[2020-09-09] MEDS: METOPROLOL SUCCINATE EXT REL 50 MG TABCR PO (12:48)
[2020-09-09] MEDS: ISOSORBIDE MONONITRATE 60 MG TAB.ER.24H 120 MG PO (12:48)
[2020-09-09] MEDS: PANTOPRAZOLE 40 MG TABLET PO (12:50)
[2020-09-09] MEDS: POTASSIUM CHLORIDE 10 MEQ TABLET.ER PO (12:50)
[2020-09-09] MEDS: rOPINIRole HCL 1 MG TABLET PO (12:51)
[2020-09-09] MEDS: ROSUVASTATIN 10 MG TABLET 40 MG PO (12:51)
[2020-09-09] MEDS: FERROUS SULFATE 324 MG TABLET PO (12:51)
[2020-09-09] MEDS: polyethylene glycoL 3350 238 GM BOTTLE PO ×2 (13:01→22:28)
[2020-09-09] MEDS: SIMETHICONE 80 MG TAB.CHEW 160 MG PO ×3 (13:18→20:20)
[2020-09-09] MEDS: MAGNESIUM CITRATE 300 ML BTL PO (13:18)
[2020-09-09 13:28] LABS: Hematocrit 29.5 % (37.0-47.0); Hemoglobin 8.7 g/dL (12.0-15.0)
--- NOTE | 2020-09-09 14:06 | PM.IMPN ---
Progress Note: A&P Assessment and Plan (1) Anemia: Code(s): D64.9 - Anemia, unspecified Status: Acute Assessment and Plan: Patient with recent EGD and colonoscopy Patient found to have nonerosive reflux disease gastritis in the past Colonoscopy significant for AVM diverticuli and polyps Holding Plavix Transfuse as needed 09/09/20 14:06 Chief Complaint: Fall. Narrative: This is a 70-year-old female with past medical history significant for coronary artery disease status post coronary artery bypass graft in 2007, congestive heart failure coma type 2 diabetes mellitus, obstructive sleep apnea, chronic anemia, Hypertension, COPD. Patient presented to the emergency room via EMS after she has been feeling weak for several days now and she had a fall when she was trying to reach out for the bathroom was at the house called EMS patient was brought to the emergency room there was no loss of consciousness. She states that she has been feeling very weak fatigued with shortness of breath and dizzy and lightheaded for the last few days or so no chest pain preliminary workup was significant for a hemoglobin of 6 she has had blood transfusions in the past and states that her hemoglobin also see late and that she had looked more pale than her usual according to daughter daughter visited her. Patient has been placed in observation status for blood transfusion. 09/09 upon arrival patient hemoglobin was 6.4 patient denies any abdominal pain nausea or vomiting, vomiting blood or rectal bleeding however he does have a black stool which she attributes to taking iron, patient is given 2 units of pack RBC will continue to monitor H and, H, patient be seen by GI and further recommendation to follow, to further evaluate her anemia will do the iron profile and plan accordingly. (2) GI bleed: Code(s): K92.2 - Gastrointestinal hemorrhage, unspecified Status: Acute Assessment and Plan: H&H q.6 (3) MALDONADO (iron deficiency anemia): Code(s): D50.9 - Iron deficiency anemia, unspecified Status: Acute Assessment and Plan: Likely secondary to GI losses through slow bleed On iron supplement (4) Weakness: Code(s): R53.1 - Weakness Status: Acute Assessment and Plan: Likely secondary to chronic illness and deconditioning (5) Fall: Code(s): W19.XXXA - Unspecified fall, initial encounter Status: Acute Assessment and Plan: No injuries No loss of conscious CT head reviewed (6) TOR (obstructive sleep apnea): Code(s): G47.33 - Obstructive sleep apnea (adult) (pediatric) Status: Acute Assessment and Plan: Continue CPAP at nighttime (7) CAD (coronary artery disease): Code(s): I25.10 - Atherosclerotic heart disease of [place] coronary artery without angina pectoris Status: Acute Assessment and Plan: Continue home meds Holding Plavix (8) CHF (congestive heart failure): Code(s): I50.9 - Heart failure, unspecified Status: Acute Assessment and Plan: Patient with some bilateral lower extremity edema could be chronic lymphedema (9) COPD (chronic obstructive pulmonary disease): Code(s): J44.9 - Chronic obstructive pulmonary disease, unspecified Status: Acute Assessment and Plan: Continue home meds Continue nebs (10) Hx of CABG: Code(s): Z95.1 - Presence of aortocoronary bypass graft Status: Acute Assessment and Plan: Stable (11) Diabetes type 2, controlled: Code(s): E11.9 - Type 2 diabetes mellitus without complications Status: Acute Assessment and Plan: Accu-Cheks AC and HS Continue home regimen Carb consistent diet 1800 calorie (12) UTI (urinary tract infection): Code(s): N39.0 - Urinary tract infection, site not specified Status: Acute Assessment and Plan: Started on Rocephin Await cultures Subjective Date/time seen: 09/09/20 1
[2020-09-09 17:10] LABS: Anion Gap 4 mmol/L (8-16); Blood Urea Nitrogen 17 mg/dL (7-17); Calcium 8.9 mg/dL (8.4-10.2); Carbon Dioxide 34 mmol/L (22-30); Chloride 98 mmol/L (98-107); Estimated Glomerular Filt Rate > 60; Glucose 162 mg/dL (65-105); Potassium 5.6 mmol/L (3.4-5.0); Sodium 136 mmol/L (137-145)
[2020-09-09] MEDS: BISACODYL 5 MG TABLET EC 10 MG PO ×2 (17:12→20:19)
[2020-09-09 17:23] LABS: Glucose Point of Care 176 mg/dl (65-105)
[2020-09-09 17:24] LABS: Magnesium 1.7 mg/dL (1.6-2.3)
[2020-09-09 17:46] LABS: Iron 67 ug/dL (37-170)
[2020-09-09 17:55] LABS: Percent Iron Saturation 16 % (20-50)
[2020-09-09] MEDS: ONDANSETRON INJ 4 MG/2 ML VIAL IV PUSH (18:44)
[2020-09-09] MEDS: ACETAMINOPHEN 325 MG TABLET 650 MG PO (20:18)
--- NOTE | 2020-09-09 20:45 | PC.NURSE ---
pt not tolerating bowel prep w Gatorade, states it makes her nauseous and will not drink it. on/call GI MD paged. Ok to reorder bowel prep and mix w water/apple juice. pt agreeable to plan.
[2020-09-09] MEDS: CYCLOBENZAPRINE HCL 5 MG TABLET PO (22:28)
[2020-09-09 22:56] LABS: Glucose Point of Care 150 mg/dl (65-105)
[2020-09-10] VITALS (12 sets, daily range): BP systolic 103–137; BP diastolic 40–65; PULSE 64–76; RESP 12–20; TEMP 35.2–36.4; O2SAT 93–100
[2020-09-10] MEDS: ONDANSETRON INJ 4 MG/2 ML VIAL IV PUSH (00:31)
[2020-09-10] MEDS: ACETAMINOPHEN 325 MG TABLET 650 MG PO ×3 (03:25→21:37)
[2020-09-10] MEDS: BISACODYL 5 MG TABLET EC 10 MG PO (03:26)
[2020-09-10] MEDS: CYCLOBENZAPRINE HCL 5 MG TABLET PO ×2 (05:15→21:37)
[2020-09-10 06:43] LABS: Hematocrit 30.7 % (37.0-47.0); Hemoglobin 8.9 g/dL (12.0-15.0); Immature Platelet Fraction Pct 4.6 % (0.9-11.2); Mean Corpuscular Hemoglobin 26.8 pg (26-34); Mean Corpuscular Volume 92.5 fl (80-100); Mean Platelet Volume 10.2 fl (7.4-10.4); Platelet Count Result 141 k/mm3 (150-375); Red Blood Count 3.32 M/mm3 (4.2-5.4); Red Cell Distribution Width 13.6 % (11.5-14.5); White Blood Count 7.3 K/mm3 (4.5-10.0)
[2020-09-10 06:57] LABS: Anion Gap 2 mmol/L (8-16); Blood Urea Nitrogen 14 mg/dL (7-17); Calcium 8.9 mg/dL (8.4-10.2); Carbon Dioxide 38 mmol/L (22-30); Chloride 96 mmol/L (98-107); Estimated Glomerular Filt Rate 55; Glucose 157 mg/dL (65-105); Potassium 5.2 mmol/L (3.4-5.0); Sodium 136 mmol/L (137-145)
--- NOTE | 2020-09-10 08:31 | WPDANESEPPF ---
Anes - Initial Pre Proc Eval Procedure: Operation Date: 09/10/20 14:00 Proposed Procedures p Esophagogastroduodenoscopy & Colonoscopy - Stanford WadeEllen Rodríguez DO Date/Time: 09/10/20 08:32 Surgeon: Genoveva Foster MD Pre Op Diagnosis: Anemia, GI bleed, renal insufficiency, weakness Patient Data Age: 70 Gender: F Height: 1.47 m Weight: 100 kg Last Vital Signs Temp 35.7 C L 09/10/20 06:00 Pulse 71 09/10/20 06:00 Resp 18 09/10/20 06:00 BP 104/50 L 09/10/20 06:00 Pulse Ox 100 09/10/20 06:00 Allergies Allergy/AdvReac Type Severity Reaction Status Date / Time adhesive tape Allergy Severe BLISTERS Verified 09/08/20 18:59 propoxyphene AdvReac Severe Nausea and Verified 09/08/20 20:33 [facility] Vomiting Home Medications Medication Instructions Recorded Confirmed Type albuterol sulfate [Ventolin HFA] 2 puff INHALATION PRN PRN 03/26/19 09/08/20 History alprazolam 0.25 mg PO TID PRN 03/26/19 09/08/20 History lenny citrate-mag ox,aspart-D3 1 tablet PO DAILY 03/26/19 09/08/20 History clopidogrel 75 mg PO DAILY 03/26/19 09/08/20 History ferrous sulfate [Iron (ferrous 325 mg PO DAILY 03/26/19 09/08/20 History sulfate)] furosemide 80 mg PO DAILY 03/26/19 09/08/20 History insulin regular hum U-500 conc See Rx Instructions .ROUTE .COMPLEX 03/26/19 09/08/20 History [Humulin R U-500 (Conc) Insulin] isosorbide mononitrate 120 mg PO DAILY 03/26/19 09/08/20 History levothyroxine 100 mcg PO DAILY 03/26/19 09/08/20 History meloxicam 15 mg PO DAILY 03/26/19 09/08/20 History metoprolol succinate 50 mg PO DAILY 03/26/19 09/08/20 History potassium chloride 10 meq PO DAILY 03/26/19 09/08/20 History ropinirole See Rx Instructions .ROUTE .COMPLEX 03/26/19 09/08/20 History rosuvastatin 40 mg PO DAILY 03/26/19 09/08/20 History tiotropium bromide [Spiriva 1.25 mcg INHALATION DAILY 03/26/19 09/08/20 History Respimat] pantoprazole [Protonix] 40 mg PO QAM #90 tablet 03/31/19 09/08/20 Rx gabapentin 300 mg PO TID 09/08/20 09/08/20 History Laboratory Tests 09/09/20 09/09/20 09/09/20 08:25 09:03 09:03 WBC 7.1 K/mm3 K/mm3 (4.5-10.0) RBC 3.16 M/mm3 L M/mm3 (4.2-5.4) Hgb 8.7 g/dL L g/dL (12.0-15.0) Hct 29.0 % L % (37.0-47.0) MCV 91.8 fl fl (80-100) MCH 27.5 pg D pg (26-34) MCHC 30.0 g/dl L g/dl (32-36) RDW 13.5 % % (11.5-14.5) Plt Count 124 k/mm3 L k/mm3 (150-375) MPV 9.9 fl fl (7.4-10.4) Immature Gran % (Auto) 0.4 % % (0-0.5) Neut % (Auto) 73.8 % H % (45.5-73.1) Lymph % (Auto) 15.4 % L % (18.3-44.2) [place] % (Auto) 6.3 % % (2.6-8.5) Eos % (Auto) 3.8 % % (0-4.4) Baso % (Auto) 0.3 % % (0.2-1.2) Lymph # (Auto) 1.09 K/mm3 K/mm3 (0.9-3.2) [place] # (Auto) 0.5 K/mm3 K/mm3 (0.1-0.6) Eos # (Auto) 0.3 K/mm3 K/mm3 (0-0.3) Baso # (Auto) 0.0 K/mm3 K/mm3 (0.0-0.1) Abs Immat Gran (auto) 0.03 K/mm3 K/mm3 (0.00-0.031) Absolute Neuts (auto) 5.2 K/mm3 K/mm3 (1.3-6.7) Absolute Nucleated RBC 0.0 K/mm3 K/mm3 (0.0-0.012) Nucleated RBC % 0.0 % % (0.0-0.2) % Immature Plt Fraction Haptoglobin Sodium 136 mmol/L L mmol/L (137-145) Potassium 5.6 mmol/L H mmol/L (3.4-5.0) Chloride 98 mmol/L mmol/L (98-107) Carbon Dioxide 34 mmol/L H mmol/L (22-30) Anion Gap 4 mmol/L L mmol/L (8-16) BUN 17 mg/dL mg/dL (7-17) Creatinine 0.90 mg/dL mg/dL (0.7-1.0) Estim Creat Clear Calc Not Reportable Estimated GFR > 60 (59 - ) Glucose 162 mg/dL H mg/dL (65-105) POC Capillary Glucose 156 mg/dl H mg/dl (65-105) Calcium 8.9 mg/dL mg/dL (8.4-10.2) Phosphorus Magnesium Copper Iron
[2020-09-10 09:22] LABS: Glucose Point of Care 178 mg/dl (65-105)
[2020-09-10] MEDS: METOPROLOL SUCCINATE EXT REL 50 MG TABCR PO (09:47)
[2020-09-10] MEDS: GABAPENTIN 300 MG CAPSULE PO ×2 (09:47→18:13)
[2020-09-10] MEDS: ISOSORBIDE MONONITRATE 60 MG TAB.ER.24H 120 MG PO (09:47)
[2020-09-10] MEDS: rOPINIRole HCL 1 MG TABLET PO (09:49)
[2020-09-10] MEDS: ALPRAZolam (*CRX) 0.25 MG TABLET PO ×2 (09:49→21:38)
[2020-09-10] MEDS: MAGNESIUM CITRATE 300 ML BTL PO (10:20)
[2020-09-10 12:57] LABS: Glucose Point of Care 185 mg/dl (65-105)
--- NOTE | 2020-09-10 13:39 | PM.IMPN ---
Progress Note: A&P Assessment and Plan (1) Anemia: Code(s): D64.9 - Anemia, unspecified Status: Acute Assessment and Plan: Patient with recent EGD and colonoscopy Patient found to have nonerosive reflux disease gastritis in the past Colonoscopy significant for AVM diverticuli and polyps Holding Plavix Transfuse as needed 09/10/20 13:39 Chief Complaint: Fall. Narrative: This is a 70-year-old female with past medical history significant for coronary artery disease status post coronary artery bypass graft in 2007, congestive heart failure coma type 2 diabetes mellitus, obstructive sleep apnea, chronic anemia, Hypertension, COPD. Patient presented to the emergency room via EMS after she has been feeling weak for several days now and she had a fall when she was trying to reach out for the bathroom was at the house called EMS patient was brought to the emergency room there was no loss of consciousness. She states that she has been feeling very weak fatigued with shortness of breath and dizzy and lightheaded for the last few days or so no chest pain preliminary workup was significant for a hemoglobin of 6 she has had blood transfusions in the past and states that her hemoglobin also see late and that she had looked more pale than her usual according to daughter daughter visited her. Patient has been placed in observation status for blood transfusion. 09/09 upon arrival patient hemoglobin was 6.4 patient denies any abdominal pain nausea or vomiting, vomiting blood or rectal bleeding however he does have a black stool which she attributes to taking iron, patient is given 2 units of pack RBC will continue to monitor H and, H, patient be seen by GI and further recommendation to follow, to further evaluate her anemia will do the iron profile and plan accordingly. 09/10 patient being prepped for colonoscopy and EGD today, patient does state see was not able to finish all the GoLYTELY, her hemoglobin is stable, patient has no complaints of abdominal pain nausea or vomiting, patient will be seen by GI and further recommendation to follow. Patient has chronic knee pain, currently NPO, patient is morbidly obese and hypoventilating, unable to give IV narcotics and allergic to Lidoderm patches. (2) GI bleed: Code(s): K92.2 - Gastrointestinal hemorrhage, unspecified Status: Acute Assessment and Plan: H&H q.6 (3) MALDONADO (iron deficiency anemia): Code(s): D50.9 - Iron deficiency anemia, unspecified Status: Acute Assessment and Plan: Likely secondary to GI losses through slow bleed On iron supplement (4) Weakness: Code(s): R53.1 - Weakness Status: Acute Assessment and Plan: Likely secondary to chronic illness and deconditioning (5) Fall: Code(s): W19.XXXA - Unspecified fall, initial encounter Status: Acute Assessment and Plan: No injuries No loss of conscious CT head reviewed (6) TOR (obstructive sleep apnea): Code(s): G47.33 - Obstructive sleep apnea (adult) (pediatric) Status: Acute Assessment and Plan: Continue CPAP at nighttime (7) CAD (coronary artery disease): Code(s): I25.10 - Atherosclerotic heart disease of [place] coronary artery without angina pectoris Status: Acute Assessment and Plan: Continue home meds Holding Plavix (8) CHF (congestive heart failure): Code(s): I50.9 - Heart failure, unspecified Status: Acute Assessment and Plan: Patient with some bilateral lower extremity edema could be chronic lymphedema (9) COPD (chronic obstructive pulmonary disease): Code(s): J44.9 - Chronic obstructive pulmonary disease, unspecified Status: Acute Assessment and Plan: Continue home meds Continue nebs (10) Hx of CABG: Code(s): Z95.1 - Presence of aortocoronary bypass graft Status: Acute Assessment and Plan: Stable (11) Diabetes type 2, controlled
--- NOTE | 2020-09-10 16:15 | PC.NURSE ---
To GI Lab per JACQUELINE fairchild none. Report given to RN.
--- NOTE | 2020-09-10 16:34 | WPDANESEPPF ---
Anes - Initial Pre Proc Eval Procedure: Operation Date: 09/10/20 14:00 Proposed Procedures p Esophagogastroduodenoscopy & Colonoscopy - Stanford WadeEllen Rodríguez DO Date/Time: 09/10/20 16:34 Surgeon: Genoveva Foster MD Pre Op Diagnosis: Anemia, GI bleed, renal insufficiency, weakness Patient Data Age: 70 Gender: F Height: 1.47 m Weight: 100 kg Last Vital Signs Temp 35.7 C L 09/10/20 06:00 Pulse 71 09/10/20 09:47 Resp 18 09/10/20 06:00 BP 104/50 L 09/10/20 06:00 Pulse Ox 96 09/10/20 14:37 Allergies Allergy/AdvReac Type Severity Reaction Status Date / Time adhesive tape Allergy Severe BLISTERS Verified 09/08/20 18:59 propoxyphene AdvReac Severe Nausea and Verified 09/08/20 20[facility]33 [facility] Vomiting Home Medications Medication Instructions Recorded Confirmed Type albuterol sulfate [Ventolin HFA] 2 puff INHALATION PRN PRN 03/26/19 09/08/20 History alprazolam 0.25 mg PO TID PRN 03/26/19 09/08/20 History lenny citrate-mag ox,aspart-D3 1 tablet PO DAILY 03/26/19 09/08/20 History clopidogrel 75 mg PO DAILY 03/26/19 09/08/20 History ferrous sulfate [Iron (ferrous 325 mg PO DAILY 03/26/19 09/08/20 History sulfate)] furosemide 80 mg PO DAILY 03/26/19 09/08/20 History insulin regular hum U-500 conc See Rx Instructions .ROUTE .COMPLEX 03/26/19 09/08/20 History [Humulin R U-500 (Conc) Insulin] isosorbide mononitrate 120 mg PO DAILY 03/26/19 09/08/20 History levothyroxine 100 mcg PO DAILY 03/26/19 09/08/20 History meloxicam 15 mg PO DAILY 03/26/19 09/08/20 History metoprolol succinate 50 mg PO DAILY 03/26/19 09/08/20 History potassium chloride 10 meq PO DAILY 03/26/19 09/08/20 History ropinirole See Rx Instructions .ROUTE .COMPLEX 03/26/19 09/08/20 History rosuvastatin 40 mg PO DAILY 03/26/19 09/08/20 History tiotropium bromide [Spiriva 1.25 mcg INHALATION DAILY 03/26/19 09/08/20 History Respimat] pantoprazole [Protonix] 40 mg PO QAM #90 tablet 03/31/19 09/08/20 Rx gabapentin 300 mg PO TID 09/08/20 09/08/20 History Laboratory Tests 09/09/20 09/09/20 09/09/20 09:03 09:03 09:03 WBC RBC Hgb Hct MCV MCH MCHC RDW Plt Count MPV % Immature Plt Fraction Sodium 136 mmol/L L mmol/L (137-145) Potassium 5.6 mmol/L H mmol/L (3.4-5.0) Chloride 98 mmol/L mmol/L (98-107) Carbon Dioxide 34 mmol/L H mmol/L (22-30) Anion Gap 4 mmol/L L mmol/L (8-16) BUN 17 mg/dL mg/dL (7-17) Creatinine 0.90 mg/dL mg/dL (0.7-1.0) Estim Creat Clear Calc Not Reportable Estimated GFR > 60 (59 - ) Glucose 162 mg/dL H mg/dL (65-105) POC Capillary Glucose Calcium 8.9 mg/dL mg/dL (8.4-10.2) Magnesium 1.7 mg/dL mg/dL (1.6-2.3) Iron 67 ug/dL ug/dL (37-170) TIBC 425 ug/dL ug/dL (261-462) % Saturation 16 % L % (20-50) Ferritin 15.50 ng/mL ng/mL (11.1-264) 09/09/20 09/09/20 09/09/20 10:57 17:19 22:09 WBC RBC Hgb Hct MCV MCH MCHC RDW Plt Count MPV % Immature Plt Fraction Sodium Potassium Chloride Carbon Dioxide Anion Gap BUN 17 mg/dL mg/dL (7-17) Creatinine 1.00 mg/dL mg/dL (0.7-1.0) Estim Creat Clear Calc Estimated GFR Glucose POC Capillary Glucose 176 mg/dl H mg/dl 150 mg/dl H mg/dl (65-105) (65-105) Calcium Magnesium Iron TIBC % Saturation Ferritin 09/10/20 09/10/20 09/10/20 06:23 06:23 09:15 WBC 7.3 K/mm3 K/mm3 (4.5-10.0) RBC
[2020-09-10] MEDS: LACTATED RINGERS 1,000 ML 150 ML IV CONT (16:36)
[2020-09-10 16:37] LABS: Glucose Point of Care 152 mg/dl (65-105)
--- NOTE | 2020-09-10 16:40 | WPDHPUPDATE1 ---
History and Physical Update Update Date/Time: 09/10/20 16:40 History and Physical has been reviewed, including an updated exam of the patient. There are NO changes in the patient's condition. Risks, benefits, and alternatives have been discussed and questions answered. Patient agrees to proceed with procedure.
--- NOTE | 2020-09-10 18:00 | PC.NURSE ---
Returned from GI Lab. Report received from EDOUARD.
[2020-09-10] MEDS: HYDROcodone/acetaminophen (*CRX) 5-325 MG TABLET 1 TAB PO ×2 (18:12→23:59)
[2020-09-10 18:21] LABS: Glucose Point of Care 148 mg/dl (65-105)
[2020-09-10 19:08] LABS: Hemoglobin 8.9 g/dL (12.0-15.0); Immature Platelet Fraction Pct 4.9 % (0.9-11.2); Mean Corpuscular HGB Conc 28.7 g/dl (32-36); Mean Corpuscular Hemoglobin 26.6 pg (26-34); Mean Corpuscular Volume 92.8 fl (80-100); Mean Platelet Volume 10.5 fl (7.4-10.4); Platelet Count Result 145 k/mm3 (150-375); Red Blood Count 3.34 M/mm3 (4.2-5.4); Red Cell Distribution Width 13.4 % (11.5-14.5); White Blood Count 7.2 K/mm3 (4.5-10.0)
[2020-09-10 19:12] LABS: Anion Gap 2 mmol/L (8-16); Blood Urea Nitrogen 13 mg/dL (7-17); Calcium 8.8 mg/dL (8.4-10.2); Carbon Dioxide 38 mmol/L (22-30); Chloride 96 mmol/L (98-107); Estimated Glomerular Filt Rate > 60; Glucose 155 mg/dL (65-105); Potassium 4.5 mmol/L (3.4-5.0); Sodium 136 mmol/L (137-145)
[2020-09-10] MEDS: rOPINIRole HCL 1 MG TABLET 3 MG PO (20:45)
[2020-09-10 21:14] LABS: Glucose Point of Care 227 mg/dl (65-105)
[2020-09-11] VITALS (7 sets, daily range): BP systolic 103–133; BP diastolic 37–45; PULSE 58–78; RESP 16–18; TEMP 36.4–37; O2SAT 96–97
[2020-09-11] MEDS: LEVOTHYROXINE SODIUM 100 MCG TABLET PO (05:46)
[2020-09-11 06:41] LABS: Hematocrit 29.9 % (37.0-47.0); Hemoglobin 8.6 g/dL (12.0-15.0); Immature Platelet Fraction Pct 5.6 % (0.9-11.2); Mean Corpuscular HGB Conc 28.8 g/dl (32-36); Mean Corpuscular Hemoglobin 26.9 pg (26-34); Mean Corpuscular Volume 93.4 fl (80-100); Mean Platelet Volume 10.8 fl (7.4-10.4); Platelet Count Result 128 k/mm3 (150-375); Red Cell Distribution Width 13.4 % (11.5-14.5); White Blood Count 7.2 K/mm3 (4.5-10.0)
[2020-09-11 06:58] LABS: Anion Gap 4 mmol/L (8-16); Blood Urea Nitrogen 17 mg/dL (7-17); Calcium 8.4 mg/dL (8.4-10.2); Carbon Dioxide 33 mmol/L (22-30); Chloride 96 mmol/L (98-107); Estimated Glomerular Filt Rate > 60; Glucose 206 mg/dL (65-105); Potassium 4.4 mmol/L (3.4-5.0); Sodium 133 mmol/L (137-145)
[2020-09-11 07:06] LABS: Glucose Point of Care 201 mg/dl (65-105)
[2020-09-11 08:22] LABS: Glucose Point of Care 208 mg/dl (65-105)
[2020-09-11] MEDS: INSULIN ASPART (*BKC) 100 UNITS/ML SUB-Q ×2 (08:28→17:38)
[2020-09-11] MEDS: rOPINIRole HCL 1 MG TABLET PO (08:29)
[2020-09-11] MEDS: ROSUVASTATIN 10 MG TABLET 40 MG PO (08:29)
[2020-09-11] MEDS: PANTOPRAZOLE 40 MG TABLET PO (08:29)
[2020-09-11] MEDS: METOPROLOL SUCCINATE EXT REL 50 MG TABCR PO (08:29)
[2020-09-11] MEDS: GABAPENTIN 300 MG CAPSULE PO ×3 (08:30→17:37)
[2020-09-11] MEDS: FERROUS SULFATE 324 MG TABLET PO (08:30)
[2020-09-11] MEDS: ISOSORBIDE MONONITRATE 60 MG TAB.ER.24H 120 MG PO (08:30)
[2020-09-11] MEDS: POTASSIUM CHLORIDE 10 MEQ TABLET.ER PO (08:30)
[2020-09-11] MEDS: CYCLOBENZAPRINE HCL 5 MG TABLET PO ×2 (08:33→21:46)
--- NOTE | 2020-09-11 10:10 | WPDANESPN ---
Anes - Prog Note Post-Op Date/Time: 09/11/20 10:10 Cardiovascular status: normal Respiratory status: normal Airway patency: baseline Mental status: baseline Post-Op hydration status: normal Vital Signs: Last Vital Signs Temp 36.4 C 09/11/20 06:00 Pulse 58 L 09/11/20 08:29 Resp 18 09/11/20 06:00 BP 113/37 L 09/11/20 06:00 Pulse Ox 96 09/11/20 06:00 Pain Score (VAS): 0/10 I/O: Intake & Output 09/10/20 09/11/20 09/11/20 23:59 07:59 15:59 Intake Total 450 750 120 Output Total 800 Balance -350 750 120 Laboratory Tests 09/11/20 06:13 09/11/20 06:13 09/10/20 09/10/20 09/10/20 12:15 16:36 18:09 WBC RBC Hgb Hct MCV MCH MCHC RDW Plt Count MPV % Immature Plt Fraction Sodium Potassium Chloride Carbon Dioxide Anion Gap BUN Creatinine Estim Creat Clear Calc Estimated GFR Glucose POC Capillary Glucose 185 H 152 H 148 H Calcium 09/10/20 09/10/20 09/10/20 18:42 18:42 20:57 WBC 7.2 RBC 3.34 L Hgb 8.9 L Hct 31.0 L MCV 92.8 MCH 26.6 MCHC 28.7 L RDW 13.4 Plt Count 145 L MPV 10.5 H % Immature Plt Fraction 4.9 Sodium 136 L Potassium 4.5 Chloride 96 L Carbon Dioxide 38 H Anion Gap 2 L BUN 13 Creatinine 0.90 Estim Creat Clear Calc Not Reportable Estimated GFR > 60 Glucose 155 H POC Capillary Glucose 227 H Calcium 8.8 09/11/20 09/11/20 09/11/20 06:13 06:13 07:03 WBC 7.2 RBC 3.20 L Hgb 8.6 L Hct 29.9 L MCV 93.4 MCH 26.9 MCHC 28.8 L RDW 13.4 Plt Count 128 L MPV 10.8 H % Immature Plt Fraction 5.6 Sodium 133 L Potassium 4.4 Chloride 96 L Carbon Dioxide 33 H Anion Gap 4 L BUN 17 Creatinine 0.90 Estim Creat Clear Calc Not Reportable Estimated GFR > 60 Glucose 206 H POC Capillary Glucose 201 H Calcium 8.4 09/11/20 07:56 WBC RBC Hgb Hct MCV MCH MCHC RDW Plt Count MPV % Immature Plt Fraction Sodium Potassium Chloride Carbon Dioxide Anion Gap BUN Creatinine Estim Creat Clear Calc Estimated GFR Glucose POC Capillary Glucose 208 H Calcium Microbiology 09/08/20 20:17 Urine Clean Catch Urine Culture - Final Klebsiella pnemoniae Post-procedural complaints: none Patient Feedback: Patient satisfied with anesthetic care.
[2020-09-11 12:37] LABS: Glucose Point of Care 246 mg/dl (65-105)
--- NOTE | 2020-09-11 12:40 | PM.IMPN ---
Progress Note: A&P Assessment and Plan (1) Anemia: Code(s): D64.9 - Anemia, unspecified Status: Acute Assessment and Plan: Patient with recent EGD and colonoscopy Patient found to have nonerosive reflux disease gastritis in the past Colonoscopy significant for AVM diverticuli and polyps Holding Plavix Transfuse as needed 09/11/20 12:40 Chief Complaint: Fall. Narrative: This is a 70-year-old female with past medical history significant for coronary artery disease status post coronary artery bypass graft in 2007, congestive heart failure coma type 2 diabetes mellitus, obstructive sleep apnea, chronic anemia, Hypertension, COPD. Patient presented to the emergency room via EMS after she has been feeling weak for several days now and she had a fall when she was trying to reach out for the bathroom was at the house called EMS patient was brought to the emergency room there was no loss of consciousness. She states that she has been feeling very weak fatigued with shortness of breath and dizzy and lightheaded for the last few days or so no chest pain preliminary workup was significant for a hemoglobin of 6 she has had blood transfusions in the past and states that her hemoglobin also see late and that she had looked more pale than her usual according to daughter daughter visited her. Patient has been placed in observation status for blood transfusion. 09/09 upon arrival patient hemoglobin was 6.4 patient denies any abdominal pain nausea or vomiting, vomiting blood or rectal bleeding however he does have a black stool which she attributes to taking iron, patient is given 2 units of pack RBC will continue to monitor H and, H, patient be seen by GI and further recommendation to follow, to further evaluate her anemia will do the iron profile and plan accordingly. 09/10 patient being prepped for colonoscopy and EGD today, patient does state see was not able to finish all the GoLYTELY, her hemoglobin is stable, patient has no complaints of abdominal pain nausea or vomiting, patient will be seen by GI and further recommendation to follow. Patient has chronic knee pain, currently NPO, patient is morbidly obese and hypoventilating, unable to give IV narcotics and allergic to Lidoderm patches. 09/11 patient had a EGD and colonoscopy on 09/10 both procedures were essentially normal no source of bleeding, today patient is feeling better however pain her knees a persistenting, patient is able to take Lidoderm patches, patient urine culture is growing Klebsiella pneumonia sensitive to Rocephin will continue, discussed physical therapy and will work with her, manager care is working to find placement for the patient, will continue to monitor, will continue PT OT and further recommendation to follow (2) GI bleed: Code(s): K92.2 - Gastrointestinal hemorrhage, unspecified Status: Acute Assessment and Plan: H&H q.6 (3) MALDONADO (iron deficiency anemia): Code(s): D50.9 - Iron deficiency anemia, unspecified Status: Acute Assessment and Plan: Likely secondary to GI losses through slow bleed On iron supplement (4) Weakness: Code(s): R53.1 - Weakness Status: Acute Assessment and Plan: Likely secondary to chronic illness and deconditioning (5) Fall: Code(s): W19.XXXA - Unspecified fall, initial encounter Status: Acute Assessment and Plan: No injuries No loss of conscious CT head reviewed (6) TOR (obstructive sleep apnea): Code(s): G47.33 - Obstructive sleep apnea (adult) (pediatric) Status: Acute Assessment and Plan: Continue CPAP at nighttime (7) CAD (coronary artery disease): Code(s): I25.10 - Atherosclerotic heart disease of [place] coronary artery without angina pectoris Status: Acute Assessment and Plan: Continue home meds Holding Plavix (8) CHF (congestive heart failure): Code(s): I50.9 - Heart failure, unspec
[2020-09-11] MEDS: HYDROcodone/acetaminophen (*CRX) 5-325 MG TABLET 1 TAB PO ×2 (12:57→21:46)
[2020-09-11] MEDS: LIDOCAINE 5% PATCH 3 PATCH TRANSDERM (13:52)
[2020-09-11 17:18] LABS: Glucose Point of Care 217 mg/dl (65-105)
[2020-09-11] MEDS: rOPINIRole HCL 1 MG TABLET 3 MG PO (21:47)
[2020-09-11] MEDS: ALPRAZolam (*CRX) 0.25 MG TABLET PO (22:06)
[2020-09-11 23:14] LABS: Glucose Point of Care 252 mg/dl (65-105)
[2020-09-12] MEDS: HYDROcodone/acetaminophen (*CRX) 5-325 MG TABLET 1 TAB PO ×3 (04:14→21:03)
[2020-09-12 05:56] VITALS: BP 127/47; PULSE 72; RESP 18; TEMP 36.4; O2SAT 99
[2020-09-12] MEDS: LEVOTHYROXINE SODIUM 100 MCG TABLET PO (06:03)
[2020-09-12 06:45] LABS: Hematocrit 27.9 % (37.0-47.0); Mean Corpuscular HGB Conc 28.7 g/dl (32-36); Mean Corpuscular Hemoglobin 26.5 pg (26-34); Mean Corpuscular Volume 92.4 fl (80-100); Platelet Count Result 110 k/mm3 (150-375); Red Blood Count 3.02 M/mm3 (4.2-5.4); Red Cell Distribution Width 13.4 % (11.5-14.5); White Blood Count 6.5 K/mm3 (4.5-10.0)
[2020-09-12 06:57] LABS: Anion Gap 5 mmol/L (8-16); Blood Urea Nitrogen 18 mg/dL (7-17); Calcium 8.7 mg/dL (8.4-10.2); Carbon Dioxide 35 mmol/L (22-30); Chloride 96 mmol/L (98-107); Estimated Glomerular Filt Rate 55; Glucose 244 mg/dL (65-105); Potassium 4.7 mmol/L (3.4-5.0); Sodium 136 mmol/L (137-145)
[2020-09-12 07:46] LABS: Glucose Point of Care 248 mg/dl (65-105)
[2020-09-12 08:00] VITALS: O2SAT 90
[2020-09-12 09:36] VITALS: PULSE 76
[2020-09-12] MEDS: METOPROLOL SUCCINATE EXT REL 50 MG TABCR PO (09:36)
[2020-09-12] MEDS: ROSUVASTATIN 10 MG TABLET 40 MG PO (09:37)
[2020-09-12] MEDS: FERROUS SULFATE 324 MG TABLET PO (09:37)
[2020-09-12] MEDS: POTASSIUM CHLORIDE 10 MEQ TABLET.ER PO (09:37)
[2020-09-12] MEDS: ISOSORBIDE MONONITRATE 60 MG TAB.ER.24H 120 MG PO (09:37)
[2020-09-12] MEDS: PANTOPRAZOLE 40 MG TABLET PO (09:38)
[2020-09-12] MEDS: rOPINIRole HCL 1 MG TABLET PO (09:38)
[2020-09-12] MEDS: GABAPENTIN 300 MG CAPSULE PO ×3 (09:38→17:31)
[2020-09-12] MEDS: LIDOCAINE 5% PATCH 3 PATCH TRANSDERM (09:39)
[2020-09-12] MEDS: INSULIN ASPART (*BKC) 100 UNITS/ML SUB-Q ×3 (09:44→17:31)
[2020-09-12 11:36] LABS: Glucose Point of Care 285 mg/dl (65-105)
--- NOTE | 2020-09-12 13:38 | PC.NURSE ---
Pt transferred to CT via bed at 1320.
--- NOTE | 2020-09-12 13:55 | PCRCNOTE ---
Window of time for administration has passed. See next scheduled administration.
[2020-09-12 14:00] VITALS: BP 131/46; PULSE 81; RESP 14; TEMP 36.9; O2SAT 98
--- NOTE | 2020-09-12 14:35 | PM.IMPN ---
Progress Note: A&P Assessment and Plan (1) Anemia: Code(s): D64.9 - Anemia, unspecified Status: Acute Assessment and Plan: Patient with recent EGD and colonoscopy Patient found to have nonerosive reflux disease gastritis in the past Colonoscopy significant for AVM diverticuli and polyps Holding Plavix Transfuse as needed 09/12/20 14:35 Chief Complaint: Fall. Narrative: This is a 70-year-old female with past medical history significant for coronary artery disease status post coronary artery bypass graft in 2007, congestive heart failure coma type 2 diabetes mellitus, obstructive sleep apnea, chronic anemia, Hypertension, COPD. Patient presented to the emergency room via EMS after she has been feeling weak for several days now and she had a fall when she was trying to reach out for the bathroom was at the house called EMS patient was brought to the emergency room there was no loss of consciousness. She states that she has been feeling very weak fatigued with shortness of breath and dizzy and lightheaded for the last few days or so no chest pain preliminary workup was significant for a hemoglobin of 6 she has had blood transfusions in the past and states that her hemoglobin also see late and that she had looked more pale than her usual according to daughter daughter visited her. Patient has been placed in observation status for blood transfusion. 09/09 upon arrival patient hemoglobin was 6.4 patient denies any abdominal pain nausea or vomiting, vomiting blood or rectal bleeding however he does have a black stool which she attributes to taking iron, patient is given 2 units of pack RBC will continue to monitor H and, H, patient be seen by GI and further recommendation to follow, to further evaluate her anemia will do the iron profile and plan accordingly. 09/10 patient being prepped for colonoscopy and EGD today, patient does state see was not able to finish all the GoLYTELY, her hemoglobin is stable, patient has no complaints of abdominal pain nausea or vomiting, patient will be seen by GI and further recommendation to follow. Patient has chronic knee pain, currently NPO, patient is morbidly obese and hypoventilating, unable to give IV narcotics and allergic to Lidoderm patches. 09/11 patient had a EGD and colonoscopy on 09/10 both procedures were essentially normal no source of bleeding, today patient is feeling better however pain her knees a persistenting, patient is able to take Lidoderm patches, patient urine culture is growing Klebsiella pneumonia sensitive to Rocephin will continue, discussed physical therapy and will work with her, career orientation teacher is working to find placement for the patient, will continue to monitor, will continue PT OT and further recommendation to follow. 09/12 patient remains clinically stable her hemoglobin stable and plan was to discharge the patient home to today however patient had a CT scan of the chest concerning for bronchogenic carcinoma discussed with pulmonology to further evaluate will do the CT scan of the chest and further recommendation to follow (2) GI bleed: Code(s): K92.2 - Gastrointestinal hemorrhage, unspecified Status: Acute Assessment and Plan: H&H q.6 (3) MALDONADO (iron deficiency anemia): Code(s): D50.9 - Iron deficiency anemia, unspecified Status: Acute Assessment and Plan: Likely secondary to GI losses through slow bleed On iron supplement (4) Weakness: Code(s): R53.1 - Weakness Status: Acute Assessment and Plan: Likely secondary to chronic illness and deconditioning (5) Fall: Code(s): W19.XXXA - Unspecified fall, initial encounter Status: Acute Assessment and Plan: No injuries No loss of conscious CT head reviewed (6) TOR (obstructive sleep apnea): Code(s): G47.33 - Obstructive sleep apnea (adult) (pediatric) Status: Acute Assessment and Plan: Continue CPAP at night
--- NOTE | 2020-09-12 15:16 | PC.NURSE ---
Pt returned from CT via bed at 1405.
[2020-09-12 16:16] LABS: Glucose Point of Care 327 mg/dl (65-105)
[2020-09-12] MEDS: CYCLOBENZAPRINE HCL 5 MG TABLET PO (17:29)
[2020-09-12 20:00] VITALS: O2SAT 95
[2020-09-12 20:04] LABS: Haptoglobin 164 mg/dL (43-212)
[2020-09-12] MEDS: rOPINIRole HCL 1 MG TABLET 3 MG PO (21:02)
[2020-09-12] MEDS: ALPRAZolam (*CRX) 0.25 MG TABLET PO (21:02)
[2020-09-12 21:48] LABS: Glucose Point of Care 312 mg/dl (65-105)
[2020-09-12] MEDS: INSULIN ASPART (*BKC) 100 UNITS/ML 6 UNITS SUB-Q (21:50)
[2020-09-12 22:00] VITALS: BP 137/46; PULSE 79; RESP 20; TEMP 36.4; O2SAT 95
[2020-09-13] MEDS: CYCLOBENZAPRINE HCL 10 MG TABLET PO (01:49)
[2020-09-13] MEDS: HYDROcodone/acetaminophen (*CRX) 5-325 MG TABLET 1 TAB PO ×2 (04:22→12:15)
[2020-09-13] MEDS: LEVOTHYROXINE SODIUM 100 MCG TABLET PO (05:48)
[2020-09-13 05:50] VITALS: BP 128/51; PULSE 70; RESP 18; TEMP 36.7; O2SAT 94
[2020-09-13 06:37] LABS: Hematocrit 30.8 % (37.0-47.0); Hemoglobin 8.7 g/dL (12.0-15.0); Mean Corpuscular HGB Conc 28.2 g/dl (32-36); Mean Corpuscular Hemoglobin 26.3 pg (26-34); Mean Corpuscular Volume 93.1 fl (80-100); Mean Platelet Volume 10.9 fl (7.4-10.4); Platelet Count Result 122 k/mm3 (150-375); Red Blood Count 3.31 M/mm3 (4.2-5.4); Red Cell Distribution Width 13.7 % (11.5-14.5)
[2020-09-13 06:42] LABS: Anion Gap 3 mmol/L (8-16); Blood Urea Nitrogen 17 mg/dL (7-17); Calcium 8.6 mg/dL (8.4-10.2); Carbon Dioxide 35 mmol/L (22-30); Chloride 96 mmol/L (98-107); Estimated Glomerular Filt Rate > 60; Glucose 277 mg/dL (65-105); Potassium 5.1 mmol/L (3.4-5.0); Sodium 134 mmol/L (137-145)
[2020-09-13 07:45] VITALS: O2SAT 94
[2020-09-13 07:58] LABS: Glucose Point of Care 309 mg/dl (65-105)
[2020-09-13 07:59] LABS: Vitamin D 1,25 (OH)2 Total 33 pg/mL (18-72); Vitamin D2 1,25 (OH)2 <8 pg/mL; Vitamin D3 1,25 (OH)2 33 pg/mL
[2020-09-13] MEDS: GABAPENTIN 300 MG CAPSULE PO ×2 (08:15→12:15)
[2020-09-13] MEDS: ISOSORBIDE MONONITRATE 60 MG TAB.ER.24H 120 MG PO (08:15)
[2020-09-13] MEDS: FERROUS SULFATE 324 MG TABLET PO (08:15)
[2020-09-13 08:16] VITALS: PULSE 70
[2020-09-13] MEDS: LIDOCAINE 5% PATCH 3 PATCH TRANSDERM (08:16)
[2020-09-13] MEDS: METOPROLOL SUCCINATE EXT REL 50 MG TABCR PO (08:16)
[2020-09-13] MEDS: ROSUVASTATIN 10 MG TABLET 40 MG PO (08:17)
[2020-09-13] MEDS: rOPINIRole HCL 1 MG TABLET PO (08:17)
[2020-09-13] MEDS: PANTOPRAZOLE 40 MG TABLET PO (08:17)
[2020-09-13] MEDS: INSULIN ASPART (*BKC) 100 UNITS/ML SUB-Q ×2 (08:24→12:12)
[2020-09-13 08:27] VITALS: O2SAT 95
--- NOTE | 2020-09-13 10:00 | PCPTNOTE ---
Patient declined PT this A.M. stating she was waiting to go for testing. PT will continue to follow per plan of care.
--- NOTE | 2020-09-13 10:13 | PM.CNPUL ---
Assessment and Plan Assessment and plan (1) Lung mass: Code(s): R91.8 - Other nonspecific abnormal finding of lung field Status: Acute Assessment and Plan: Patient had CT scan of the chest on 09/12/2020 that showed a 2.9 cm right lower lobe mass that was approximately 1.5 x 0.[address]ule on a CT of the abdomen on 12/14/2018 patient also has a left breast mass measuring 4.8 cm. Nonspecific mediastinal lymphadenopathy, panlobular apical predominant emphysema and small pleural effusions with bilateral lower lobe consolidations. Possible lung cancer vs metastatic disease. Peripheral mass that abuts pleura without mediastinal adenopathy makes this inaccessible by bronchoscopy at our hospital and after speaking with radiology they are unable to perform CT guided biopsy given she is on home oxygen. If lung tissue is needed in the future she will need referral to [facility] for either CT guided biopsy or bronchoscopy. Will follow with you. (2) Breast mass: Code(s): N63.0 - Unspecified lump in unspecified breast Status: Acute Assessment and Plan: Patient is scheduled to have ultrasound of the left breast mass which is new from her mammogram on 10/17/2019. I spoke to the radiologist and if this is a soft tissue mass it would be accessible to a biopsy. History of Present Illness History of Present Illness Consult date: 09/13/20 Requesting physician: Joseluis Singleton MD Reason for consult: lung mass Chief complaint: Anemia, GI bleed, renal insufficiency, weakness Narrative: This is a new pulmonary consult for right lower lobe lung mass. This is a 70-year-old with a history of tobacco exposure and COPD for 10 years, TOR diagnosed 15 years ago but unable to tolerate CPAP and failed a dental appliance, left breast cancer in 2013, right breast cancer in 2019 who presented with weakness and a fall. Patient states that she denies any fever, chills, cough or chest pain. Patient does have phlegm production approximately 1 time per week and she describes the color is white or clear. Patient has never had hemoptysis. Patient states that for the last month she has lost her appetite and lost 8 lb. Patient has a positive family history for lung cancer in her mother who was a smoker. Currently the patient tells me she is breathing at her baseline and is being treated with Spiriva 18 mcg q.day and ceftriaxone. Patient smoked 1 and half pack of cigarettes from age [age] resulting in 57 pack year exposure. Patient was exposed to secondhand smoke from both parents but none since then. 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 On a good day patient can walk 10 yd and she wears 3 L nasal cannula 247. Patient's M MRC is grade 4. Patient has never been hospitalized for COPD exacerbation and had a cold/exacerbation greater than 1 year ago. Patient had CT scan of the chest on 09/12/2020 that showed a 2.9 cm right lower lobe mass that was approximately 1.5 x 0.[address]ule on a CT of the abdomen on 12/14/2018 patient also has a left breast mass measuring 4.8 cm. Nonspecific mediastinal Lat lymphadenopathy, panlobular apical predominant emphysema and small pleural effusions with bilateral lower lobe consolidations. DATA: EXAMINATION: CT diagnostic chest wo con DATE: 09/12/2020 13:58 INDICATION: Right lung mass TECHNIQUE: Computed tomography (CT) of the chest was performed without intravenous contrast. The dose-length product was 810.48 mGy-cm. Automated exposure control and iterative reconstruction technique were employed. COMPARISON: CT chest dated 04/25/[address] abdomen dated 09/11/2020 FINDINGS: There is a mass in the left breast measuring 4.8 x 4.4 x 3.8 cm, concerning for breast cancer. Mediastinal lymphadenopathy, for instance right paratracheal lymph node measures 11 mm short axis, image 40. There are calcified subcarinal lymph nodes
[2020-09-13 11:40] LABS: Glucose Point of Care 248 mg/dl (65-105)
[2020-09-13] MEDS: ONDANSETRON INJ 4 MG/2 ML VIAL IV PUSH (12:21)
[2020-09-13 14:00] VITALS: BP 106/41; PULSE 64; RESP 16; TEMP 35.9; O2SAT 97
--- NOTE | 2020-09-13 14:20 | PM.DS ---
DS: Admitting Diagnosis Admitting Diagnosis Admitting Diagnosis: Chief Complaint: Fall. DS: Summary Hospital Course Reason for hospitalization: Chief Complaint: Fall. Narrative: This is a 70-year-old female with past medical history significant for coronary artery disease status post coronary artery bypass graft in 2007, congestive heart failure coma type 2 diabetes mellitus, obstructive sleep apnea, chronic anemia, Hypertension, COPD. Patient presented to the emergency room via EMS after she has been feeling weak for several days now and she had a fall when she was trying to reach out for the bathroom was at the house called EMS patient was brought to the emergency room there was no loss of consciousness. She states that she has been feeling very weak fatigued with shortness of breath and dizzy and lightheaded for the last few days or so no chest pain preliminary workup was significant for a hemoglobin of 6 she has had blood transfusions in the past and states that her hemoglobin also see late and that she had looked more pale than her usual according to daughter daughter visited her. Patient has been placed in observation status for blood transfusion. Hospital Course: 09/12/20 14:35 Chief Complaint: Fall. Narrative: This is a 70-year-old female with past medical history significant for coronary artery disease status post coronary artery bypass graft in 2007, congestive heart failure coma type 2 diabetes mellitus, obstructive sleep apnea, chronic anemia, Hypertension, COPD. Patient presented to the emergency room via EMS after she has been feeling weak for several days now and she had a fall when she was trying to reach out for the bathroom was at the house called EMS patient was brought to the emergency room there was no loss of consciousness. She states that she has been feeling very weak fatigued with shortness of breath and dizzy and lightheaded for the last few days or so no chest pain preliminary workup was significant for a hemoglobin of 6 she has had blood transfusions in the past and states that her hemoglobin also see late and that she had looked more pale than her usual according to daughter daughter visited her. Patient has been placed in observation status for blood transfusion. 09/09 upon arrival patient hemoglobin was 6.4 patient denies any abdominal pain nausea or vomiting, vomiting blood or rectal bleeding however he does have a black stool which she attributes to taking iron, patient is given 2 units of pack RBC will continue to monitor H and, H, patient be seen by GI and further recommendation to follow, to further evaluate her anemia will do the iron profile and plan accordingly. 09/10 patient being prepped for colonoscopy and EGD today, patient does state see was not able to finish all the GoLYTELY, her hemoglobin is stable, patient has no complaints of abdominal pain nausea or vomiting, patient will be seen by GI and further recommendation to follow. Patient has chronic knee pain, currently NPO, patient is morbidly obese and hypoventilating, unable to give IV narcotics and allergic to Lidoderm patches. 09/11 patient had a EGD and colonoscopy on 09/10 both procedures were essentially normal no source of bleeding, today patient is feeling better however pain her knees a persistenting, patient is able to take Lidoderm patches, patient urine culture is growing Klebsiella pneumonia sensitive to Rocephin will continue, discussed physical therapy and will work with her, insurance healthcare consultant is working to find placement for the patient, will continue to monitor, will continue PT OT and further recommendation to follow. 09/12 patient remains clinically stable her hemoglobin stable and plan was to discharge the patient home to today however patient had a CT scan of the chest concerning for bronchogenic carcinoma discussed with pulmonology to further evaluate will do the CT scan of the chest and further recommendation to follow Patient mcclain
== END 2020-09-13 16:15 | disposition home health service (06) ==
LOC: ANHED 20:34 → ANH3MEDSUR 09-09 10:30
PROVIDERS: Internal Medicine Gastroenterology; Admitting Provider Internal Medicine; Emergency Provider Emergency Medicine; PCP Physician Assistant; Visit Provider Family Medicine
PROC: 0DJ08ZZ Inspection of Upper Intestinal Tract, Via Natural or Artificial Opening Endoscopic (ICD-10-PCS; CPT 43235; principal; 2020-09-10 14:00)
DX: D50.9 Iron deficiency anemia, unspecified (principal); R53.1 Weakness; W19.XXXA Unspecified fall, initial encounter; N63.0 Unspecified lump in unspecified breast; R91.8 Other nonspecific abnormal finding of lung field; K92.2 Gastrointestinal hemorrhage, unspecified; D12.2 Benign neoplasm of ascending colon; D12.0 Benign neoplasm of cecum; D12.3 Benign neoplasm of transverse colon; J43.9 Emphysema, unspecified; R06.02 Shortness of breath; I25.10 Atherosclerotic heart disease of native coronary artery without angina pectoris; G47.33 Obstructive sleep apnea (adult) (pediatric); D64.9 Anemia, unspecified; E66.01 Morbid (severe) obesity due to excess calories; E11.22 Type 2 diabetes mellitus with diabetic chronic kidney disease; I13.0 Hypertensive heart and chronic kidney disease with heart failure and stage 1 through stage 4 chronic kidney disease, or unspecified chronic kidney disease; I50.9 Heart failure, unspecified; I11.0 Hypertensive heart disease with heart failure; M47.812 Spondylosis without myelopathy or radiculopathy, cervical region; M17.12 Unilateral primary osteoarthritis, left knee; N18.9 Chronic kidney disease, unspecified; B96.1 Klebsiella pneumoniae [K. pneumoniae] as the cause of diseases classified elsewhere; N39.0 Urinary tract infection, site not specified; Z68.42 Body mass index [BMI] 45.0-49.9, adult; Z98.1 Arthrodesis status; Z95.1 Presence of aortocoronary bypass graft; Z85.3 Personal history of malignant neoplasm of breast; Z87.891 Personal history of nicotine dependence; Z79.899 Other long term (current) drug therapy
CPT/HCPCS: 43239; 45385; 36415; 36430; 51701; 70450; 71045; 71250; 72125; 72170; 73564; 74177; 76642; 80048; 80053; 80061; 81001; 82525; 82607; 82652; 82728; 82746; 82948; 83010; 83540; 83550; 83615; 83735; 84100; 84436; 84439; 85014; 85018; 85025; 85027; 85055; 85610; 85730; 86334; 86850; 86900; 86901; 86920; 87077; 87081; 87086; 87186; 88305; 93005; 94640; 96365; 96375; 96376; 97110; 97161; 97165; 97530; 97535; 99285; A9270; G0378; J0696; J1815; J2405; J2704; J7050; J7120; P9016; Q9967

== ENCOUNTER 2020-09-18 15:52 | Emergency (ER) | payer MEDICARE, MEDICAID, SELFPAY ==
--- NOTE | ~2020-09-18 | XR_ITS ---
EXAMINATION: XR chest 1V portable EXAM DATE: 09/18/2020 16:11 INDICATION: Weakness, history of breast cancer reflux hypertension CHF COPD. Right lower lobe mass. TECHNIQUE: Portable AP frontal chest x-ray was obtained. Comparison is made to prior examination from 09/08/2020. Correlation was made with CT 09/12/2020. FINDINGS: Sternotomy wires are present without findings to suggest sternal dehiscence. The cardiac si lhouette is enlarged. There is pulmonary vascular congestion. Difficult to visualize the medially located right lower lobe mass seen on CT. Left pleural blunting a gain noted, multi segmental left lower lobe atelectasis and probably some amount of pleural fluid as well. No pneumothorax. Left shoulder replacement. IMPRESSION: 1. Cardiomegaly, pulmonary vascular congestion. 2. Left pleural blunting, multi segmental atelectasis in probably some pleural fluid. 3. Poorly visualized right lower lobe mass. 4. Pneumonia not excludable. Reviewed, dictated and finalized at location A.
[2020-09-18 15:50] VITALS: BP 139/68; PULSE 78; RESP 18; TEMP 36.1; O2SAT 95
--- NOTE | 2020-09-18 15:54 | ECG_ITS ---
Measurements Intervals [place] Rate: 73 P: 70 NM: 197 QRS: -9 QRSD: 76 T: 62 QT: 373 QTc: 412 Interpretive Statements SINUS RHYTHM BORDERLINE R WAVE PROGRESSION, ANTERIOR LEADS BORDERLINE T WAVE ABNORMALITY- HIGH LATERAL LEADS BASELINE ARTIFACT- I, II, III, AVR, AVL, V6 BORDERLINE ECG Electronically Signed On 09-18-2020 20:56:27 CDT by Jelani Mckinnon D.O.
[2020-09-18 16:30] LABS: Basophils Percent Auto 0.4 % (0.2-1.2); Eosinophils Absolute Auto 0.3 K/mm3 (0-0.3); Eosinophils Percent Auto 5.4 % (0-4.4); Hematocrit 33.4 % (37.0-47.0); Hemoglobin 9.2 g/dL (12.0-15.0); Immature Granulocyte Absolute 0.02 K/mm3 (0.00-0.031); Immature Granulocyte Percent A 0.4 % (0-0.5); Lymphocytes Absolute Auto 0.93 K/mm3 (0.9-3.2); Lymphocytes Percent Auto 18.1 % (18.3-44.2); Mean Corpuscular HGB Conc 27.5 g/dl (32-36); Mean Corpuscular Hemoglobin 26.5 pg (26-34); Mean Corpuscular Volume 96.3 fl (80-100); Mean Platelet Volume 10.5 fl (7.4-10.4); Monocytes Absolute Auto 0.3 K/mm3 (0.1-0.6); Monocytes Percent Auto 5.8 % (2.6-8.5); Neutrophils Absolute Auto 3.6 K/mm3 (1.3-6.7); Neutrophils Percent Auto 69.9 % (45.5-73.1); Platelet Count Result 139 k/mm3 (150-375); Red Blood Count 3.47 M/mm3 (4.2-5.4); Red Cell Distribution Width 14.7 % (11.5-14.5); White Blood Count 5.1 K/mm3 (4.5-10.0)
[2020-09-18 16:33] LABS: Add Urine Microscopic? YES; Appearance Urine Clear (Clear); Bilirubin Urine Negative (Negative); Blood Urine Negative (Negative); Color Urine Yellow (Yellow); Glucose Urine UA 3+ mg/dL (Negative); Ketones Urine Trace mg/dL (Negative); Leukocyte Esterase Ur Negative LEU/UL (Negative); Mucus Urine Rare /lpf; Nitrate Urine Negative (Negative); Protein Urine 1+ mg/dL (Negative); RBC Urine 0-2 /hpf (0-2); Specific Grav Ur 1.024 (1.001-1.035); Squamous Epithelial Cell Urine Occasional /hpf (Few); Urobilinogen Urine Negative mg/dL (<2.0); WBC Urine 0-3 /hpf
[2020-09-18 16:34] VITALS: PULSE 66
[2020-09-18 16:35] VITALS: BP 138/61; PULSE 66; RESP 14; O2SAT 98
[2020-09-18 16:44] LABS: Alanine Aminotransferase 26 U/L (4-35); Albumin Level 3.6 g/dL (3.5-5.1); Alkaline Phosphatase 78 U/L (38-126); Anion Gap 4 mmol/L (8-16); Aspartate Amino Transferase 38 U/L (14-36); Bilirubin,Total 0.5 mg/dL (0.2-1.3); Blood Urea Nitrogen 20 mg/dL (7-17); Calcium 9.1 mg/dL (8.4-10.2); Carbon Dioxide 39 mmol/L (22-30); Chloride 98 mmol/L (98-107); Estimated Glomerular Filt Rate > 60; Glucose 251 mg/dL (65-105); Potassium 4.7 mmol/L (3.4-5.0); Sodium 141 mmol/L (137-145)
[2020-09-18 16:48] LABS: Hypochromasia 1+ (NORMAL)
[2020-09-18 16:49] LABS: Anisocytosis 1+ (NORMAL)
--- NOTE | 2020-09-18 16:55 | PC.NURSE ---
Patient repositioned in stretcher and linens changed for comfort. Noted pressure ulcer/open area to coccyx along with excoriation. Also noted bilateral leg redness with warmth. Lidocaine patches seen to bilateral knees for chronic pain, states were placed prior to arrival to ED.
--- NOTE | 2020-09-18 17:02 | PC.NURSE ---
Care coordination called at this time to consult with patient.
--- NOTE | 2020-09-18 17:03 | ED.GENADULT ---
HPI - General Adult General Chief complaint: Weakness Stated complaint: weakness x1 week Time Seen by Provider: 09/18/20 16:02 Source: patient, EMS and RN notes reviewed Mode of arrival: EMS Limitations: no limitations History of Present Illness HPI narrative: Patient 70 years old white female came to the emergency room from home by ambulance complaining of generalized weakness for the last 7 days. Patient was discharged from our hospital on September 13. With urinary tract infection. Patient denies any fever, chills, nausea, vomiting, abdominal pain, chest pain, shortness of breath, back pain, headache. Patient is telling me that she cannot walk because her knees are [id number]. And her is taking care of her. Patient also telling me that she is scheduled for rehab and she does not know when. Patient also telling me that she have a prescription for mammogram of the left breast and she does not know when she is supposed to get it and would like to get it now. Patient also have history of lung mass and does not know what the plan for it at this time. Patient lives with her who is taking care of her. Patient declined to accept any detention placement at this time. Related Data Home Medications Medication Instructions Recorded Confirmed Humulin R U-500 (Conc) Insulin See Rx Instructions .ROUTE .COMPLEX 03/26/19 09/08/20 Spiriva Respimat 1.25 mcg INHALATION DAILY 03/26/19 09/08/20 albuterol sulfate [Ventolin HFA] 2 puff INHALATION PRN PRN 03/26/19 09/08/20 alprazolam 0.25 mg PO TID PRN 03/26/19 09/08/20 lenny citrate-mag ox,aspart-D3 1 tablet PO DAILY 03/26/19 09/08/20 clopidogrel 75 mg PO DAILY 03/26/19 09/08/20 ferrous sulfate [Iron (ferrous 325 mg PO DAILY 03/26/19 09/08/20 sulfate)] furosemide 80 mg PO DAILY 03/26/19 09/08/20 isosorbide mononitrate 120 mg PO DAILY 03/26/19 09/08/20 levothyroxine 100 mcg PO DAILY 03/26/19 09/08/20 meloxicam 15 mg PO DAILY 03/26/19 09/08/20 metoprolol succinate 50 mg PO DAILY 03/26/19 09/08/20 potassium chloride 10 meq PO DAILY 03/26/19 09/08/20 ropinirole See Rx Instructions .ROUTE .COMPLEX 03/26/19 09/08/20 rosuvastatin 40 mg PO DAILY 03/26/19 09/08/20 gabapentin 300 mg PO TID 09/08/20 09/08/20 Allergies Allergy/AdvReac Type Severity Reaction Status Date / Time adhesive tape Allergy Severe BLISTERS Verified 09/08/20 18:59 propoxyphene AdvReac Severe Nausea and Verified 09/08/20 20:33 [From Darvocet-N] Vomiting Review of Systems Review of Systems: Narrative: CONSTITUTIONAL: Denies fever, chills, or sweats. EYES: Denies visual changes, redness, or discharge. ENT: Denies rhinorrhea, congestion, sore throat, or otalgia. CARDIOVASCULAR: Denies chest pain, palpitations, or edema. RESPIRATORY: Denies cough or dyspnea. GASTROINTESTINAL: Denies abdominal pain, nausea, vomiting, or diarrhea. GENITOURINARY: Denies dysuria or hematuria. SKIN: Denies rash or itching. MUSCULOSKELETAL: Denies back pain, joint pain, or myalgia. NEUROLOGIC: Denies headache, numbness, or weakness. PSYCHIATRIC: Denies anxiety or depression. [facility] Past Medical History Medical History Adenomatous colon polyp Anxiety Asthma AVM (arteriovenous malformation) of colon CAD (coronary artery disease) CHF (congestive heart failure) COPD (chronic obstructive pulmonary disease) Diabetes type 2, controlled DVT (deep venous thrombosis) GERD (gastroesophageal reflux disease) History of hearing loss History of home oxygen therapy Hx of breast cancer Hyperlipidemia Hypertension Hypothyroidism Neuropathy TOR (obstructive sleep apnea) RLS (restless legs syndrome) Venous stasis Surgical History Surgical History H/O colonoscopy H/O esophagogastroduodenoscopy H/O rectocele repair History of coronary artery stent placement History of tubal ligation Hx of CABG Hx of CABG Hx of carpal tunnel repair Hx of cholecyste
[2020-09-18 17:56] VITALS: BP 127/41; PULSE 65; RESP 14; O2SAT 100
[2020-09-18] MEDS: HYDROcodone/acetaminophen (*CRX) 5-325 MG TABLET 1 TAB PO (18:28)
--- NOTE | 2020-09-18 18:32 | PC.NURSE ---
Spoke with patients and updated that patient will be discharged home via EMS. [facility] was given the number for home health to follow up for patient RN/PT/OT. States will call the [facility] number on Sunday to set this up for patient. Also advised to call insurance to set up transport for mammogram and any other outpatient appts that were advised. Grey did state he has all the equipment for patient at home including a wheelchair, commode and oxygen. Sadia in Care coordination was contacted and help facilitate patients/families needs.
[2020-09-18 18:38] VITALS: BP 120/48; PULSE 69; RESP 16; O2SAT 100
[2020-09-18 18:58] VITALS: TEMP 36.1
--- NOTE | 2020-09-18 19:07 | PC.NURSE ---
[facility] here.
--- NOTE | 2020-09-18 19:10 | PC.NURSE ---
Patient transferred home via [facility] now.
== END 2020-09-18 19:12 | disposition home or self-care (01) ==
PROVIDERS: Emergency Provider Emergency Medicine; PCP Physician Assistant
DX: R53.1 Weakness (principal); R91.8 Other nonspecific abnormal finding of lung field; F41.9 Anxiety disorder, unspecified; J45.909 Unspecified asthma, uncomplicated; I25.10 Atherosclerotic heart disease of native coronary artery without angina pectoris; E11.9 Type 2 diabetes mellitus without complications; K21.9 Gastro-esophageal reflux disease without esophagitis; I10 Essential (primary) hypertension
CPT/HCPCS: 36415; 71045; 80053; 81001; 84443; 85025; 93005; 99283; A9270

== ENCOUNTER 2020-09-23 05:31 | Observation (INO) | payer MEDICARE, MEDICAID, SELFPAY ==
[2020-09-23] VITALS (16 sets, daily range): BP systolic 111–145; BP diastolic 42–79; PULSE 98–113; RESP 13–26; TEMP 35.9–37.1; O2SAT 93–98; BMI 48.2
--- NOTE | ~2020-09-23 | XR_ITS ---
XR chest 1V portable DATE: 09/23/2020 06:15 INDICATION: Shortness of breath TECHNIQUE: Portable AP chest on 09/23/2020 at 0615 hours COMPARISON: 10/15/2020 portable AP chest at 1611 hours 09/12/2020 CT chest FINDINGS: Status post sternotomy. Cardiomegaly. Aortic calcification. There is left lower lobe atelectasis and/or consolidation. Possible mass density versus focal atelectasis or consolidation in the medial right lower lobe. There is pulmonary vascular congestion/redistribution and mild pleural effusion. No pneumothorax. Assessment left glenohumeral joint replacement. Status post lower anterior cervical spine surgical fusion. IMPRESSION: Left lower lobe atelectasis/consolidation Possible mass versus focal atelectasis or consolidation, medial right lower lobe Cardiomegaly, mild congestive changes Reviewed, dictated and finalized at location A. IMPRESSION: Left lower lobe atelectasis/consolidation Possible mass versus focal atelectasis or consolidation, medial right lower lob e Cardiomegaly, mild congestive changes
--- NOTE | ~2020-09-23 | CT_ITS ---
EXAMINATION: CT brain wo con EXAM DATE: 09/24/2020 11:11 INDICATION: Weakness. TECHNIQUE: Spiral CT of the head was performed without contrast. Axial, coronal and sagittal images were reviewed. The dose-length product (DLP) for this examination was 605.33 mGy-cm. The exposure w as tailored according to patient size, and iterative reconstruction (ASIR) was used as additional dos e reduction technique. Comparison is made to prior examination from 09/08/2020. FINDINGS: Mild cerebral atrophy. There is no acute intraparenchymal hemorrhage. No evidence of intra parenchymal brain mass lesion. No evidence of acute infarction. There is no mass effect or midline shift. The ventricles are normal in size. There are no extra-axial collections. There are no acute calvarial fractures. Patient has had bilateral ocular lens surgery. Soft tissue is unremarkable. R ight otomastoiditis fusion, progressed compared to prior study. IMPRESSION: 1. No acute intracranial findings. 2. Right otomastoiditis fusion Reviewed, dictated and finalized at location B.
--- NOTE | ~2020-09-23 | CT_ITS ---
EXAMINATION: CTA chest PE protocol DATE: 09/23/2020 08:02 INDICATION: Shortness of breath. TECHNIQUE: Computed tomography angiography (CTA) of the chest was performed with 100 mL Omnipaque-350 intravenous contrast timed to evaluate the pulmonary arteries. Coronal maximum intensity projection 3D-reconstructions were created by the technologist. Automated exposure control and iterative reconst ruction technique were employed. Exam dose: 987.82 mGy-cm total exam DLP. COMPARISON: 09/23/2020 portable AP chest 09/12/2020 CT chest FINDINGS: Examination is limited by motion. Status post sternotomy. Cardiomegaly. No pericardial effusion. Small left pleural effusion. There is aortic and great vessel and coronary artery atherosclerosis. No thoracic aortic aneurysm or dissection. No central pulmonary embolism. Peripheral pulmonary arteries are not optimally evaluated due to motio n. There is focal atelectasis or consolidation or less likely mass lesion in the posteromedial right low er lobe. There is persistent left lower lobe atelectasis/consolidation. Previously reported 4.8 cm left breast mass is only minimally included in this examination. Left luanne st malignancy is suspected. Status post ventral abdominal wall repair. Status post cholecystectomy. Status post lower anterior cervical spine surgical fusion. IMPRESSION: Limited examination due to motion; no central pulmonary embolism is identified No significant change since 09/12/2020; persistent left lower lobe and to a lesser extent right lower lobe atelectasis/consolidation Suspected left breast 4.8 cm malignancy Reviewed, dictated and finalized at Location A. Reviewed, dictated and finalized at location A. IMPRESSION: Limited examination due to motion; no central pulmonary embolism i s identified No significant change since 09/12/2020; persistent left lower lobe and to a less er extent right lower lobe atelectasis/consolidation Suspected left breast 4.8 cm malignancy
--- NOTE | 2020-09-23 05:46 | ECG_ITS ---
Measurements Intervals [place] Rate: 101 P: 80 MS: 193 QRS: -11 QRSD: 70 T: 58 QT: 327 QTc: 425 Interpretive Statements SINUS TACHYCARDIA POOR R WAVE PROGRESSION, ANTERIOR LEADS CONSIDER INFERIOR INFARCT, AGE INDETERMINATE BORDERLINE T WAVE ABNORMALITY- HIGH LATERAL LEADS BASELINE ARTIFACT- I, II, III, AVR, AVL, AVF ABNORMAL ECG Electronically Signed On 09-23-2020 7:00:13 CDT by Jelani Mckinnon D.O.
--- NOTE | 2020-09-23 05:59 | ED.GENADULT ---
HPI - General Adult General Chief complaint: Shortness of Breath/Dyspnea Stated complaint: sob Time Seen by Provider: 09/23/20 05:41 History of Present Illness HPI narrative: Patient 70-year-old female presents emerged from with chief complaint of shortness of breath. Patient reports she has history of COPD also history of a recently found lung mass that is being worked up. Patient reports that this evening she started getting more more progressively short of breath and had finally reached a point that she decided to call EMS. Patient was given a nebulizer treatment in route to the emergency department and reports she feels a little bit better now. Patient denies fever denies cough Related Data Home Medications Medication Instructions Recorded Confirmed Humulin R U-500 (Conc) Insulin See Rx Instructions .ROUTE .COMPLEX 03/26/19 09/08/20 Spiriva Respimat 1.25 mcg INHALATION DAILY 03/26/19 09/08/20 albuterol sulfate [Ventolin HFA] 2 puff INHALATION PRN PRN 03/26/19 09/08/20 alprazolam 0.25 mg PO TID PRN 03/26/19 09/08/20 lenny citrate-mag ox,aspart-D3 1 tablet PO DAILY 03/26/19 09/08/20 clopidogrel 75 mg PO DAILY 03/26/19 09/08/20 ferrous sulfate [Iron (ferrous 325 mg PO DAILY 03/26/19 09/08/20 sulfate)] furosemide 80 mg PO DAILY 03/26/19 09/08/20 isosorbide mononitrate 120 mg PO DAILY 03/26/19 09/08/20 levothyroxine 100 mcg PO DAILY 03/26/19 09/08/20 meloxicam 15 mg PO DAILY 03/26/19 09/08/20 metoprolol succinate 50 mg PO DAILY 03/26/19 09/08/20 potassium chloride 10 meq PO DAILY 03/26/19 09/08/20 ropinirole See Rx Instructions .ROUTE .COMPLEX 03/26/19 09/08/20 rosuvastatin 40 mg PO DAILY 03/26/19 09/08/20 gabapentin 300 mg PO TID 09/08/20 09/08/20 Allergies Allergy/AdvReac Type Severity Reaction Status Date / Time adhesive tape Allergy Severe BLISTERS Verified 09/23/20 05:47 propoxyphene AdvReac Severe Nausea and Verified 09/23/20 05:47 [From Val] Vomiting Review of Systems Review of Systems: Narrative: A 10 system review of systems was completed on the patient and is negative except for what is stated in the HPI. Nursing and ancillary documentation was reviewed. [facility] Past Medical History Medical History Adenomatous colon polyp Anxiety Asthma AVM (arteriovenous malformation) of colon CAD (coronary artery disease) CHF (congestive heart failure) COPD (chronic obstructive pulmonary disease) Diabetes type 2, controlled DVT (deep venous thrombosis) GERD (gastroesophageal reflux disease) History of hearing loss History of home oxygen therapy Hx of breast cancer Hyperlipidemia Hypertension Hypothyroidism Neuropathy TOR (obstructive sleep apnea) RLS (restless legs syndrome) Venous stasis Surgical History Surgical History H/O colonoscopy H/O esophagogastroduodenoscopy H/O rectocele repair History of coronary artery stent placement History of tubal ligation Hx of CABG Hx of CABG Hx of carpal tunnel repair Hx of cholecystectomy Hx of hernia repair Hx of lumpectomy Status post cervical spinal fusion Family History Family History Father Family history of malignant neoplasm of stomach Family history of malignant neoplasm Malignant neoplasm of prostate Family history of heart disease in male family member before age 55 Mother Family history of lung cancer Family history of diabetes mellitus in first degree relative Family history of heart disease in male family member before age 55 Sibling Family history of heart disease in male family member before age 55 Other Cerebrovascular accident Diabetes mellitus Family history of arthritis Family history of cardiovascular disease Family history of chronic obstructive pulmonary disease Family history of congestive heart failure Family history of gout Family h
[2020-09-23 06:08] LABS: Basophils Percent Auto 0.2 % (0.2-1.2); Eosinophils Absolute Auto 0.1 K/mm3 (0-0.3); Hematocrit 32.4 % (37.0-47.0); Hemoglobin 9.5 g/dL (12.0-15.0); Immature Granulocyte Absolute 0.06 K/mm3 (0.00-0.031); Immature Granulocyte Percent A 0.5 % (0-0.5); Lymphocytes Absolute Auto 1.47 K/mm3 (0.9-3.2); Lymphocytes Percent Auto 12.2 % (18.3-44.2); Mean Corpuscular HGB Conc 29.3 g/dl (32-36); Mean Corpuscular Hemoglobin 26.2 pg (26-34); Mean Corpuscular Volume 89.5 fl (80-100); Mean Platelet Volume 11.3 fl (7.4-10.4); Monocytes Absolute Auto 0.8 K/mm3 (0.1-0.6); Monocytes Percent Auto 6.2 % (2.6-8.5); Neutrophils Absolute Auto 9.6 K/mm3 (1.3-6.7); Neutrophils Percent Auto 79.9 % (45.5-73.1); Platelet Count Result 192 k/mm3 (150-375); Red Blood Count 3.62 M/mm3 (4.2-5.4); Red Cell Distribution Width 14.9 % (11.5-14.5)
[2020-09-23 06:16] LABS: INR 1.1; Prothrombin Time 13.7 Seconds (11.1-14.7)
[2020-09-23 06:17] LABS: Partial Thromboplastin Time 29.5 SECONDS (22.3-36.8)
[2020-09-23] MEDS: IPRATROPIUM BR 0.02% INH SOLN 0.5 MG/2.5 ML VIAL INHALATION ×3 (06:20→19:53)
[2020-09-23] MEDS: ALBUTEROL SULFATE NEB 2.5 MG/0.5 ML INH 5 MG INHALATION ×3 (06:20→19:52)
[2020-09-23 06:30] LABS: NT Pro B Type Natriuretic Pept 470 pg/mL (5-100); Troponin I 0.016 ng/mL (0.000-0.034)
[2020-09-23 06:52] LABS: Add Urine Microscopic? YES; Appearance Urine Clear (Clear); Bacteria Urine Trace /hpf; Bilirubin Urine Negative (Negative); Blood Urine Negative (Negative); Color Urine Yellow (Yellow); Glucose Urine UA 1+ mg/dL (Negative); Ketones Urine Trace mg/dL (Negative); Leukocyte Esterase Ur Negative LEU/UL (Negative); Mucus Urine Rare /lpf; Nitrate Urine Negative (Negative); Protein Urine Negative (Negative); RBC Urine 0-2 /hpf (0-2); Specific Grav Ur 1.019 (1.001-1.035); Urobilinogen Urine Negative mg/dL (<2.0); WBC Urine 0-3 /hpf
[2020-09-23 07:19] LABS: Alanine Aminotransferase 22 U/L (4-35); Albumin Level 3.8 g/dL (3.5-5.1); Alkaline Phosphatase 91 U/L (38-126); Anion Gap 9 mmol/L (8-16); Aspartate Amino Transferase 32 U/L (14-36); Blood Urea Nitrogen 20 mg/dL (7-17); Calcium 9.3 mg/dL (8.4-10.2); Carbon Dioxide 35 mmol/L (22-30); Chloride 92 mmol/L (98-107); Estimated Glomerular Filt Rate 49; Glucose 265 mg/dL (65-105); Magnesium 1.4 mg/dL (1.6-2.3); Sodium 136 mmol/L (137-145)
--- NOTE | 2020-09-23 10:45 | PC.NURSE ---
This patient, Madison Celis, was admitted to 3 [facility] Surg Room 320-01 at 1025. Patient/family oriented to hospital policies and general routines including ID bracelet, bed and alarms, visiting hours, pain management, procedures, bathroom and other care routines, personal items, smoking policy, room service/diet, and visiting hours. Information on how to activate the Rapid Response Team has been discussed. Patient/Family are encouraged to report perceived risks to care and to ask questions if they do not understand what they are told or what they should do.
--- NOTE | 2020-09-23 11:17 | PCOTNOTE ---
OT evaluation attempted. Per RN, Hold until hospitalist evaluates patient. Will attempt at later time.
[2020-09-23 13:08] LABS: Glucose Point of Care 271 mg/dl (65-105)
--- NOTE | 2020-09-23 13:09 | PCNSR ---
Addendum entered by Heide Loomis RD, LDN 09/23/20 13:10: Student documentation from Heide Beltran, not Carrie Ochoa. Original Note: On 09/23/20, the student,Carrie Ochoa, provided care and completed [facility] documentation on this patient. I have reviewed the student's documentation and agree with the findings.
--- NOTE | 2020-09-23 13:50 | PM.IMHP ---
H&P: HPI History of Present Illness Date/Time: 09/23/20 13:00 Chief Complaint: Shortness of breath. Narrative: This is a chronically debilitated 70-year-old female with chronic respiratory rate failure, coronary artery disease, congestive heart failure, COPD, untreated sleep apnea, diabetes, and several other comorbidities who presented to the emergency department earlier today with complaints of shortness of breath. She was recently admitted to the hospital on 09/08/2020 after she presented to the emergency department with a fall, found to have profound anemia for which she was transfused and underwent upper and lower endoscopy per Dr. Rodríguez. No acute source of bleeding was noted however she does have a history of AVMs and there was some talk about possible capsule endoscopy if she continues to have issues. Incidentally she was found to have a fairly large left breast mass and a right lower lobe lung nodule on imaging suspicious for lung cancer versus metastatic disease. She does have a history of breast cancer several years ago and she is awaiting diagnostic mammogram for further evaluation. As for the lung mass it cannot be done at this facility and should lung tissue be needed in the future she will need referral to either [facility] or [facility] for CT-guided biopsy or bronchoscopy. In any event she has been so weak since her recent admission that she has not been able to get up out of her recliner and in fact her family members have been putting her on a bedpan ss she cannot get out of the chair. She tells me that her legs are just too weak to hold her up and it sounds like she has a hard time pulling herself up with her arms as well. Ultimately she decided to come in today for evaluation as she woke up early this morning gasping for air although with further questioning it sounds as though she has chronic orthopnea. It is also noted that her sleep apnea has gone on treated for many years as she is claustrophobic and cannot tolerate the mask. I had a long discussion with the patient and her son at bedside, with her permission, and they had been discussing hospice however are not certain if they want to go that route as of yet. At this time the patient is hoping that she can be placed in rehab on discharge for a few weeks in order to gain back some strength so she can return home. She has not had fever but she occasionally has sweats though that does not sound new. She has not had a fever, cold or flu symptoms, nausea, vomiting, diarrhea, or dysuria. Her appetite has not been good though she denies anosmia and dysgeusia. She has chronic constipation issues which is unchanged. Review of Systems Review of Systems: Narrative: Twelve systems were reviewed with pertinent positives and negatives as per HPI. Patient wears a dex, tells me her glucose is typically somewhere in the 200s recently. She denies blurry vision, polydipsia, and polyuria. With her glucose being higher she has noticed increasing symptoms of neuropathy in her hands, which she describes as like bee stings. No sinus congestion, rhinorrhea, otalgia, or odynophagia. No exposure to those positive for COVID-19. She denies vertigo, auditory visual changes, focal weakness, and paresthesias aside from her chronic neuropathy. Except as documented, all other systems were reviewed and are negative. [facility] Past Medical History Medical History (Updated 09/23/20 @ 23:46 by Elvira Vargas PA-C) Adenomatous colon polyp Anxiety Asthma Chronic anemia History of blood transfusions. Chronic kidney disease Baseline creatinine ranges between 0.9 and 1.10. Chronic obstructive pulmonary disease Chronic respiratory failure with hypoxia, on home oxygen therapy Congestive heart failure Echocardiogram in November 2018 showed normal LV systolic function with an estimated EF of 60 to 65%, severely enlarged right ventricular chamber, moderate biatrial dilation, modest mitral and tricuspid valve insufficiency. Coronary ar
[2020-09-23] MEDS: INSULIN ASPART (*BKC) 100 UNITS/ML SUB-Q ×2 (13:56→17:06)
--- NOTE | 2020-09-23 14:43 | PCPTNOTE ---
Attempted PT eval. RN stated to hold PT until hospitalist saw pt. Will try again tomorrow.
[2020-09-23] MEDS: MAGNESIUM SULF 2 GM/WATER 50ML 2 GM/50 ML BAG IVPB (16:42)
[2020-09-23] MEDS: HYDROcodone/acetaminophen (*CRX) 5-325 MG TABLET 1 TAB PO (16:44)
[2020-09-23 17:15] LABS: Glucose Point of Care 248 mg/dl (65-105)
[2020-09-23 19:56] LABS: Free T4 Free Thyroxine Reflex 0.86 ng/dL (0.78-2.19)
[2020-09-23] MEDS: GABAPENTIN 300 MG CAPSULE 600 MG PO (20:06)
[2020-09-23] MEDS: rOPINIRole HCL 1 MG TABLET 3 MG PO (20:06)
[2020-09-23 20:09] LABS: Hemoglobin A1C 6.8 % (<5.7)
[2020-09-23 21:22] LABS: Glucose Point of Care 228 mg/dl (65-105)
[2020-09-23 22:16] LABS: Anion Gap 7 mmol/L (8-16); Blood Urea Nitrogen 20 mg/dL (7-17); Calcium 9.2 mg/dL (8.4-10.2); Carbon Dioxide 36 mmol/L (22-30); Chloride 89 mmol/L (98-107); Estimated Glomerular Filt Rate 55; Glucose 266 mg/dL (65-105); Potassium 4.9 mmol/L (3.4-5.0); Sodium 132 mmol/L (137-145)
[2020-09-24 06:00] VITALS: BP 128/58; PULSE 86; RESP 18; TEMP 35.9; O2SAT 96
[2020-09-24 06:29] LABS: Total Triiodothyronine (T3) 0.68 NG/ML (0.97-1.69)
[2020-09-24 06:31] LABS: Hematocrit 31.7 % (37.0-47.0); Mean Corpuscular HGB Conc 28.4 g/dl (32-36); Mean Corpuscular Hemoglobin 26.4 pg (26-34); Mean Platelet Volume 10.7 fl (7.4-10.4); Platelet Count Result 189 k/mm3 (150-375); Red Blood Count 3.41 M/mm3 (4.2-5.4); Red Cell Distribution Width 15.2 % (11.5-14.5)
[2020-09-24 06:32] LABS: Anion Gap 4 mmol/L (8-16); Blood Urea Nitrogen 19 mg/dL (7-17); Carbon Dioxide 39 mmol/L (22-30); Chloride 91 mmol/L (98-107); Estimated Glomerular Filt Rate 49; Glucose 239 mg/dL (65-105); Magnesium 1.9 mg/dL (1.6-2.3); Potassium 5.1 mmol/L (3.4-5.0); Sodium 134 mmol/L (137-145)
[2020-09-24] MEDS: LEVOTHYROXINE SODIUM 100 MCG TABLET PO (06:34)
[2020-09-24 07:41] LABS: Glucose Point of Care 215 mg/dl (65-105)
[2020-09-24 08:00] VITALS: O2SAT 95
[2020-09-24] MEDS: INSULIN ASPART (*BKC) 100 UNITS/ML SUB-Q ×3 (08:00→17:56)
[2020-09-24] MEDS: LIDOCAINE 5% PATCH 3 PATCH TRANSDERM (08:01)
[2020-09-24] MEDS: CLOPIDOGREL BISULFATE 75 MG TABLET PO (08:01)
[2020-09-24] MEDS: ROSUVASTATIN 10 MG TABLET 40 MG PO (08:01)
[2020-09-24] MEDS: MELOXICAM 7.5 MG TABLET 15 MG PO (08:01)
[2020-09-24 08:02] VITALS: PULSE 84
[2020-09-24] MEDS: ISOSORBIDE MONONITRATE 60 MG TAB.ER.24H 120 MG PO (08:02)
[2020-09-24] MEDS: GABAPENTIN 300 MG CAPSULE PO (08:02)
[2020-09-24] MEDS: FERROUS SULFATE 324 MG TABLET PO (08:02)
[2020-09-24] MEDS: rOPINIRole HCL 1 MG TABLET 2 MG PO (08:02)
[2020-09-24] MEDS: FUROSEMIDE 80 MG TABLET PO (08:02)
[2020-09-24] MEDS: METOPROLOL SUCCINATE EXT REL 50 MG TABCR PO (08:02)
[2020-09-24 09:51] VITALS: O2SAT 96
[2020-09-24] MEDS: HYDROcodone/acetaminophen (*CRX) 5-325 MG TABLET 1 TAB PO (10:50)
[2020-09-24 12:12] LABS: Glucose Point of Care 252 mg/dl (65-105)
[2020-09-24] MEDS: polyethylene glycoL 3350 17 GM POWD.PACK PO (12:34)
[2020-09-24] MEDS: BISACODYL 10 MG SUPPOSITORY RECTAL (12:35)
[2020-09-24] MEDS: TOLNAFTATE 1% POWDER 45 GM BTL 1 APPLIC TOPICAL ×2 (12:37→21:09)
[2020-09-24 14:00] VITALS: BP 132/60; PULSE 74; RESP 20; TEMP 36.2; O2SAT 98
--- NOTE | 2020-09-24 14:07 | PM.IMPN ---
Progress Note: A&P Assessment and Plan (1) Shortness of breath: Code(s): R06.02 - Shortness of breath Status: Acute Assessment and Plan: Presented after awakening from sleep with shortness of breath. She has had longstanding, untreated sleep apnea and it sounds as though that is what caused her symptoms. Limited chest CTA due to motion however pulmonary embolism is felt to be less likely. No acute exacerbation of COPD. She is stable on her typical 3 L O2. SOB improved. She does not use CPAP. (2) Chronic respiratory failure with hypoxia, on home oxygen therapy: Code(s): J96.11 - Chronic respiratory failure with hypoxia; Z99.81 - Dependence on supplemental oxygen Status: Acute Assessment and Plan: She is at her baseline oxygen requirements. Continue albuterol and ipratropium nebulizers p.r.n. (3) Hypomagnesemia: Code(s): E83.42 - Hypomagnesemia Status: Acute Assessment and Plan: 1.4 at presentation. Improved to 2.0 with supplementation. Continue to monitor magnesium levels. (4) Type 2 diabetes mellitus: Code(s): E11.9 - Type 2 diabetes mellitus without complications Status: Acute Assessment and Plan: A1c is 6.8. Glucose has been in the 200s today and she reports elevation over the past few days. continue Accu-Cheks, sliding scale insulin, hypoglycemic protocol. Monitor blood sugar trends (5) Left breast mass: Code(s): N63.20 - Unspecified lump in the left breast, unspecified quadrant Status: Acute Assessment and Plan: Patient has a fairly large left breast mass and also a right lower lobe mass noted on previous imaging as detailed in HPI. Awaiting diagnostic mammogram. please see subjective for further details. (6) Chronic obstructive pulmonary disease: Code(s): J44.9 - Chronic obstructive pulmonary disease, unspecified Status: Acute Assessment and Plan: No acute exacerbation. Continue home respiratory regimen. Nebulizers available as needed. No indication for steroids. (7) Chronic kidney disease: Code(s): N18.9 - Chronic kidney disease, unspecified Status: Acute Assessment and Plan: Creatinine is stable on review of previous labs. (8) Chronic anemia: Code(s): D64.9 - Anemia, unspecified Status: Acute Assessment and Plan: Hemoglobin and hematocrit are stable on review of previous labs. (9) Generalized weakness: Code(s): R53.1 - Weakness Status: Acute Assessment and Plan: Secondary to chronic debility in addition to recent hospitalization. No focal deficits noted on exam. She would benefit from rehab placement prior to returning home. PT/ OT consulted. Care coordination following. (10) Abnormal TSH: Code(s): R79.89 - Other specified abnormal findings of blood chemistry Status: Acute Assessment and Plan: TSH is elevated at 13.1. Free T4 is wnl. Total T3 is low. Will uptitrate levothyroxine to 112. She will need repeat reflex TSH in 4-6 weeks Subjective Date/time seen: 09/24/20 14:07 Interval history: Date of service: 09/24/20 Madison Celis is a 70 year old female with a history of anemia, CKD, COPD, chronic respiratory failure on 3 L O2 at baseline, CHF, CAD, diabetes mellitus, TOR, and several other comorbidities who is seen in follow up for generalized weakness. She is still feeling quite tired today and will close her eyes while we are speaking, but remains awake. She had just completed therapy and was feeling worn down. She was not able to walk but did stand up. she is also feeling bloated and constipated. Her last bowel movement was 2 days ago. She has a poor appetite and did not eat much of her breakfast today. Endorses occasional nausea but has not vomited. Her shortness of breath has improved. She has intermittent dry cough. No chest pain. Denies dizziness or lightheadedness.
[2020-09-24] MEDS: ONDANSETRON INJ 4 MG/2 ML VIAL IV PUSH ×2 (15:17→22:17)
[2020-09-24 17:27] LABS: Glucose Point of Care 231 mg/dl (65-105)
[2020-09-24] MEDS: GABAPENTIN 300 MG CAPSULE 600 MG PO (21:06)
[2020-09-24] MEDS: DOCUSATE SODIUM 100 MG CAPSULE PO (21:06)
[2020-09-24] MEDS: rOPINIRole HCL 1 MG TABLET 3 MG PO (21:07)
[2020-09-24 22:00] VITALS: BP 107/47; PULSE 84; RESP 18; TEMP 36.2; O2SAT 98
[2020-09-25] VITALS (7 sets, daily range): BP systolic 109–111; BP diastolic 43–52; PULSE 77–88; RESP 18–20; TEMP 36.1–36.6; O2SAT 94–98
[2020-09-25] MEDS: LEVOTHYROXINE SODIUM 112 MCG TABLET PO (05:45)
[2020-09-25 06:33] LABS: Hematocrit 32.5 % (37.0-47.0); Hemoglobin 9.3 g/dL (12.0-15.0)
[2020-09-25 06:44] LABS: Blood Urea Nitrogen 25 mg/dL (7-17); Calcium 8.7 mg/dL (8.4-10.2); Carbon Dioxide > 40 mmol/L (22-30); Chloride 87 mmol/L (98-107); Estimated Glomerular Filt Rate 44; Glucose 211 mg/dL (65-105); Sodium 134 mmol/L (137-145)
[2020-09-25] MEDS: ONDANSETRON INJ 4 MG/2 ML VIAL IV PUSH (06:47)
[2020-09-25 07:30] LABS: Glucose Point of Care 213 mg/dl (65-105)
[2020-09-25 07:52] LABS: Glucose Point of Care 195 mg/dl (65-105)
[2020-09-25 09:35] LABS: Magnesium 1.8 mg/dL (1.6-2.3)
[2020-09-25] MEDS: LIDOCAINE 5% PATCH 3 PATCH TRANSDERM (09:35)
[2020-09-25] MEDS: polyethylene glycoL 3350 17 GM POWD.PACK PO (09:36)
[2020-09-25] MEDS: TOLNAFTATE 1% POWDER 45 GM BTL 1 APPLIC TOPICAL ×2 (09:38→20:09)
[2020-09-25] MEDS: FUROSEMIDE 80 MG TABLET PO (09:40)
[2020-09-25] MEDS: CLOPIDOGREL BISULFATE 75 MG TABLET PO (09:40)
[2020-09-25] MEDS: MELOXICAM 7.5 MG TABLET 15 MG PO (09:40)
[2020-09-25] MEDS: ISOSORBIDE MONONITRATE 60 MG TAB.ER.24H 120 MG PO (09:40)
[2020-09-25] MEDS: rOPINIRole HCL 1 MG TABLET 2 MG PO (09:41)
[2020-09-25] MEDS: ROSUVASTATIN 10 MG TABLET 40 MG PO (09:41)
[2020-09-25] MEDS: POTASSIUM CHLORIDE 10 MEQ TABLET.ER PO (09:42)
[2020-09-25] MEDS: METOPROLOL SUCCINATE EXT REL 50 MG TABCR PO (09:42)
[2020-09-25] MEDS: DOCUSATE SODIUM 100 MG CAPSULE PO ×2 (09:43→20:09)
[2020-09-25] MEDS: GABAPENTIN 300 MG CAPSULE PO (09:43)
[2020-09-25] MEDS: FERROUS SULFATE 324 MG TABLET PO (09:43)
[2020-09-25] MEDS: INSULIN ASPART (*BKC) 100 UNITS/ML SUB-Q (12:01)
[2020-09-25 12:09] LABS: Glucose Point of Care 217 mg/dl (65-105)
--- NOTE | 2020-09-25 14:01 | PM.IMPN ---
Progress Note: A&P Assessment and Plan (1) Shortness of breath: Code(s): R06.02 - Shortness of breath Status: Acute Assessment and Plan: Resolved. Presented after awakening from sleep with shortness of breath. She has had longstanding, untreated sleep apnea and it sounds as though that is what caused her symptoms. Limited chest CTA due to motion however pulmonary embolism is felt to be less likely. No acute exacerbation of COPD. She is stable on her typical 3 L O2. She does not use CPAP. (2) Chronic respiratory failure with hypoxia, on home oxygen therapy: Code(s): J96.11 - Chronic respiratory failure with hypoxia; Z99.81 - Dependence on supplemental oxygen Status: Acute Assessment and Plan: She is at her baseline oxygen requirements. Continue albuterol and ipratropium nebulizers p.r.n. (3) Hypomagnesemia: Code(s): E83.42 - Hypomagnesemia Status: Acute Assessment and Plan: 1.4 at presentation. Improved with supplementation. Continue to monitor magnesium levels. Begin 400 mg PO Mag-ox daily (4) Type 2 diabetes mellitus: Code(s): E11.9 - Type 2 diabetes mellitus without complications Status: Acute Assessment and Plan: A1c is 6.8. Glucose has been in the 200s. continue Accu-Cheks, sliding scale insulin, hypoglycemic protocol. Monitor blood sugar trends. Will add Lantus 16 units (5) Left breast mass: Code(s): N63.20 - Unspecified lump in the left breast, unspecified quadrant Status: Acute Assessment and Plan: Patient has a fairly large left breast mass and also a right lower lobe mass noted on previous imaging as detailed in HPI. Awaiting diagnostic mammogram at outside facility. (6) Chronic obstructive pulmonary disease: Code(s): J44.9 - Chronic obstructive pulmonary disease, unspecified Status: Acute Assessment and Plan: No acute exacerbation. Continue home respiratory regimen. Nebulizers available as needed. No indication for steroids. (7) Chronic kidney disease: Code(s): N18.9 - Chronic kidney disease, unspecified Status: Acute Assessment and Plan: Creatinine is stable on review of previous labs. (8) Chronic anemia: Code(s): D64.9 - Anemia, unspecified Status: Acute Assessment and Plan: Hemoglobin and hematocrit are stable on review of previous labs. (9) Generalized weakness: Code(s): R53.1 - Weakness Status: Acute Assessment and Plan: Secondary to chronic debility in addition to recent hospitalization. No focal deficits noted on exam. She would benefit from rehab placement prior to returning home. PT/ OT consulted. Care coordination following and working on SNF placement (10) Abnormal TSH: Code(s): R79.89 - Other specified abnormal findings of blood chemistry Status: Acute Assessment and Plan: TSH is elevated at 13.1. Free T4 is wnl. Total T3 is low. Levothyroxine uptitrated to 112. She will need repeat reflex TSH in 4-6 weeks Subjective Date/time seen: 09/25/20 14:01 Interval history: Date of service: 09/25/20 Madison Celis is a 70 year old female with a history of anemia, CKD, COPD, chronic respiratory failure on 3 L O2 at baseline, CHF, CAD, diabetes mellitus, TOR, and several other comorbidities who is seen in follow up for generalized weakness. she is still feeling weak and fatigued today, but seems a bit better than yesterday. She had just gotten done with her therapy. she did not eat much today because she was not feeling very hungry. She continues to complain of neuropathy in her bilateral upper extremities. Notes improved swelling in her lower extremities. Denies abdominal pain but still feels constipated and bloated. Her shortness of breath is significantly improved. She is coughing infrequently with only occasional mucus production. No chest pain or palpitations.
[2020-09-25] MEDS: MAGNESIUM SULF 2 GM/WATER 50ML 2 GM/50 ML BAG IVPB (14:21)
[2020-09-25] MEDS: HYDROcodone/acetaminophen (*CRX) 5-325 MG TABLET 1 TAB PO (14:26)
[2020-09-25 17:13] LABS: Glucose Point of Care 199 mg/dl (65-105)
[2020-09-25] MEDS: rOPINIRole HCL 1 MG TABLET 3 MG PO (20:05)
[2020-09-25] MEDS: GABAPENTIN 300 MG CAPSULE 600 MG PO (20:05)
[2020-09-25] MEDS: ALPRAZolam (*CRX) 0.25 MG TABLET PO (20:14)
[2020-09-25] MEDS: INSULIN GLARGINE (*BKC) 100 UNITS/ML 16 UNITS SUB-Q (20:15)
[2020-09-25 20:52] LABS: Glucose Point of Care 236 mg/dl (65-105)
[2020-09-26] VITALS (7 sets, daily range): BP systolic 102–121; BP diastolic 50–57; PULSE 75–84; RESP 16–20; TEMP 36.2–36.4; O2SAT 94–98
[2020-09-26] MEDS: LEVOTHYROXINE SODIUM 112 MCG TABLET PO (05:47)
[2020-09-26 07:24] LABS: Hematocrit 33.6 % (37.0-47.0); Hemoglobin 9.5 g/dL (12.0-15.0)
[2020-09-26 07:44] LABS: Alanine Aminotransferase 28 U/L (4-35); Albumin Level 3.4 g/dL (3.5-5.1); Alkaline Phosphatase 109 U/L (38-126); Aspartate Amino Transferase 38 U/L (14-36); Bilirubin,Total 0.9 mg/dL (0.2-1.3); Blood Urea Nitrogen 30 mg/dL (7-17); CRP 1.8 mg/dL (<1.0); Calcium 8.8 mg/dL (8.4-10.2); Carbon Dioxide > 40 mmol/L (22-30); Chloride 84 mmol/L (98-107); Estimated Glomerular Filt Rate 37; Glucose 229 mg/dL (65-105); Magnesium 2.2 mg/dL (1.6-2.3); Potassium 4.7 mmol/L (3.4-5.0); Sodium 135 mmol/L (137-145)
[2020-09-26 07:49] LABS: Glucose Point of Care 220 mg/dl (65-105)
[2020-09-26] MEDS: INSULIN ASPART (*BKC) 100 UNITS/ML SUB-Q ×3 (07:52→15:43)
[2020-09-26] MEDS: TOLNAFTATE 1% POWDER 45 GM BTL 1 APPLIC TOPICAL ×2 (08:00→20:35)
[2020-09-26] MEDS: LIDOCAINE 5% PATCH 3 PATCH TRANSDERM (08:01)
[2020-09-26] MEDS: polyethylene glycoL 3350 17 GM POWD.PACK PO (08:01)
[2020-09-26] MEDS: ROSUVASTATIN 10 MG TABLET 40 MG PO (08:03)
[2020-09-26] MEDS: GABAPENTIN 300 MG CAPSULE PO (08:03)
[2020-09-26] MEDS: rOPINIRole HCL 1 MG TABLET 2 MG PO (08:03)
[2020-09-26] MEDS: METOPROLOL SUCCINATE EXT REL 50 MG TABCR PO (08:03)
[2020-09-26] MEDS: FERROUS SULFATE 324 MG TABLET PO (08:03)
[2020-09-26] MEDS: DOCUSATE SODIUM 100 MG CAPSULE PO ×2 (08:03→20:34)
[2020-09-26] MEDS: POTASSIUM CHLORIDE 10 MEQ TABLET.ER PO (08:05)
[2020-09-26] MEDS: MAGNESIUM OXIDE 400 MG TABLET PO (08:05)
[2020-09-26] MEDS: MELOXICAM 7.5 MG TABLET 15 MG PO (08:05)
[2020-09-26] MEDS: ISOSORBIDE MONONITRATE 60 MG TAB.ER.24H 120 MG PO (08:05)
[2020-09-26] MEDS: FUROSEMIDE 80 MG TABLET PO (08:05)
[2020-09-26] MEDS: CLOPIDOGREL BISULFATE 75 MG TABLET PO (08:05)
[2020-09-26] MEDS: HYDROcodone/acetaminophen (*CRX) 5-325 MG TABLET 1 TAB PO (09:55)
[2020-09-26 12:13] LABS: Glucose Point of Care 266 mg/dl (65-105)
--- NOTE | 2020-09-26 14:23 | PM.IMPN ---
Progress Note: A&P Assessment and Plan (1) Shortness of breath: Code(s): R06.02 - Shortness of breath Status: Acute Assessment and Plan: Resolved. Presented after awakening from sleep with shortness of breath. She has had longstanding, untreated sleep apnea and it sounds as though that is what caused her symptoms. Limited chest CTA due to motion however pulmonary embolism is felt to be less likely. No acute exacerbation of COPD. She is stable on her typical 3 L O2. She does not use CPAP. (2) Chronic respiratory failure with hypoxia, on home oxygen therapy: Code(s): J96.11 - Chronic respiratory failure with hypoxia; Z99.81 - Dependence on supplemental oxygen Status: Acute Assessment and Plan: She is at her baseline oxygen requirements. Continue albuterol and ipratropium nebulizers p.r.n. (3) Hypomagnesemia: Code(s): E83.42 - Hypomagnesemia Status: Acute Assessment and Plan: Resolved. 1.4 at presentation. Improved with supplementation. Continue to monitor magnesium levels. Continue 400 mg PO Mag-ox daily (4) Type 2 diabetes mellitus: Code(s): E11.9 - Type 2 diabetes mellitus without complications Status: Acute Assessment and Plan: A1c is 6.8. Glucose has been in the 200s. continue Accu-Cheks, sliding scale insulin, hypoglycemic protocol. Monitor blood sugar trends. Increase Lantus to 20 units. Diabetic diet. (5) Left breast mass: Code(s): N63.20 - Unspecified lump in the left breast, unspecified quadrant Status: Acute Assessment and Plan: Patient has a fairly large left breast mass and also a right lower lobe mass noted on previous imaging as detailed in HPI. Awaiting diagnostic mammogram at outside facility. Discussed with family at length again. Initially reported they had follow up imaging scheduled as this was a known finding, but it appears they have no follow up arranged and I am unclear whether this is already being followed by a medical provider. I will be in contact with her PCP tomorrow to arrange follow up if not previously scheduled. (6) Chronic obstructive pulmonary disease: Code(s): J44.9 - Chronic obstructive pulmonary disease, unspecified Status: Acute Assessment and Plan: No acute exacerbation. Continue home respiratory regimen. Nebulizers available as needed. No indication for steroids. (7) Chronic kidney disease: Code(s): N18.9 - Chronic kidney disease, unspecified Status: Acute Assessment and Plan: Baseline appears to be fluctuant from 1.0-1.5. Creatinine is consistent with baseline. (8) Chronic anemia: Code(s): D64.9 - Anemia, unspecified Status: Acute Assessment and Plan: Hemoglobin and hematocrit are stable on review of previous labs. (9) Generalized weakness: Code(s): R53.1 - Weakness Status: Acute Assessment and Plan: Secondary to chronic debility in addition to recent hospitalization. No focal deficits noted on exam. She would benefit from rehab placement prior to returning home. PT/ OT consulted. Care coordination following and working on SNF placement. (10) Abnormal TSH: Code(s): R79.89 - Other specified abnormal findings of blood chemistry Status: Acute Assessment and Plan: TSH is elevated at 13.1. Free T4 is wnl. Total T3 is low. Levothyroxine uptitrated to 112 mcg. She will need repeat reflex TSH in 4-6 weeks (11) Electrolyte abnormality: Code(s): E87.8 - Other disorders of electrolyte and fluid balance, not elsewhere classified Status: Acute Assessment and Plan: Bicarb is elevated and chloride levels low. Possibly contraction alkalosis. Will hold Lasix today and give a dose of Diamox. Monitor BMP. Subjective Date/time seen: 09/26/20 14:23 Interval history: Date of service: 09/25/20 Madison Celis is a 70 year old female with a hist
[2020-09-26 15:45] LABS: Glucose Point of Care 260 mg/dl (65-105)
[2020-09-26] MEDS: rOPINIRole HCL 1 MG TABLET 3 MG PO (20:33)
[2020-09-26] MEDS: GABAPENTIN 300 MG CAPSULE 600 MG PO (20:34)
[2020-09-26] MEDS: INSULIN GLARGINE (*BKC) 100 UNITS/ML 20 UNITS SUB-Q (20:34)
[2020-09-26] MEDS: SENNOSIDES 8.6 MG TABLET PO (20:46)
[2020-09-26] MEDS: ALPRAZolam (*CRX) 0.25 MG TABLET PO (20:53)
[2020-09-26 22:20] LABS: Glucose Point of Care 250 mg/dl (65-105)
[2020-09-27 06:00] VITALS: BP 134/54; PULSE 92; RESP 14; TEMP 36.1; O2SAT 97
[2020-09-27] MEDS: LEVOTHYROXINE SODIUM 112 MCG TABLET PO (06:22)
[2020-09-27 06:56] LABS: Hematocrit 34.3 % (37.0-47.0); Hemoglobin 9.6 g/dL (12.0-15.0)
[2020-09-27 07:12] LABS: Blood Urea Nitrogen 31 mg/dL (7-17); Calcium 8.7 mg/dL (8.4-10.2); Carbon Dioxide > 40 mmol/L (22-30); Chloride 85 mmol/L (98-107); Estimated Glomerular Filt Rate 37; Glucose 207 mg/dL (65-105); Potassium 4.3 mmol/L (3.4-5.0); Sodium 135 mmol/L (137-145)
--- NOTE | 2020-09-27 07:48 | PC.NURSE ---
Charting was done in error under Nadege Elliott name on 09/26/201899 - 2099 by Xenia Ordoñez RN
[2020-09-27 08:15] LABS: Glucose Point of Care 202 mg/dl (65-105)
[2020-09-27] MEDS: HYDROcodone/acetaminophen (*CRX) 5-325 MG TABLET 1 TAB PO (09:30)
[2020-09-27] MEDS: ISOSORBIDE MONONITRATE 60 MG TAB.ER.24H 120 MG PO (09:30)
[2020-09-27] MEDS: ROSUVASTATIN 10 MG TABLET 40 MG PO (09:30)
[2020-09-27] MEDS: MELOXICAM 7.5 MG TABLET 15 MG PO (09:31)
[2020-09-27] MEDS: FERROUS SULFATE 324 MG TABLET PO (09:31)
[2020-09-27] MEDS: acetaZOLAMIDE TAB 250 MG TABLET PO (09:31)
[2020-09-27] MEDS: CLOPIDOGREL BISULFATE 75 MG TABLET PO (09:31)
[2020-09-27] MEDS: POTASSIUM CHLORIDE 10 MEQ TABLET.ER PO (09:31)
[2020-09-27] MEDS: METOPROLOL SUCCINATE EXT REL 50 MG TABCR PO (09:31)
[2020-09-27] MEDS: MAGNESIUM OXIDE 400 MG TABLET PO (09:31)
[2020-09-27] MEDS: GABAPENTIN 300 MG CAPSULE PO (09:31)
[2020-09-27] MEDS: polyethylene glycoL 3350 17 GM POWD.PACK PO (09:32)
[2020-09-27] MEDS: DOCUSATE SODIUM 100 MG CAPSULE PO (09:32)
[2020-09-27] MEDS: LIDOCAINE 5% PATCH 3 PATCH TRANSDERM (09:32)
[2020-09-27] MEDS: rOPINIRole HCL 1 MG TABLET 2 MG PO (09:32)
[2020-09-27] MEDS: TOLNAFTATE 1% POWDER 45 GM BTL 1 APPLIC TOPICAL (09:33)
[2020-09-27] MEDS: INSULIN ASPART (*BKC) 100 UNITS/ML SUB-Q ×2 (09:47→11:55)
[2020-09-27 11:44] VITALS: O2SAT 96
[2020-09-27 12:01] LABS: Glucose Point of Care 253 mg/dl (65-105)
[2020-09-27 14:00] VITALS: BP 112/49; PULSE 80; RESP 20; TEMP 36.2; O2SAT 96
--- NOTE | 2020-09-27 15:40 | PM.DS ---
DS: Admitting Diagnosis Admitting Diagnosis Admitting Diagnosis: Generalized weakness DS: Discharge Diagnosis Discharge Diagnosis (1) Generalized weakness: Code(s): R53.1 - Weakness Status: Acute Assessment and Plan: Secondary to chronic debility in addition to recent hospitalization. No focal deficits noted on exam. head CT negative. She was evaluated by PT / OT and will continue therapy at SNF. (2) Left breast mass: Code(s): N63.20 - Unspecified lump in the left breast, unspecified quadrant Status: Acute Assessment and Plan: Patient has a fairly large left breast mass and also a right lower lobe lung mass noted on previous imaging as detailed in HPI. I spoke with her PCP who is aware of these findings. Diagnostic mammography has been ordered but patient has been unable to get to appointments. Discussed with patient and family at length. They would like to pursue rehab to allow the patient to get more mobile prior to proceeding with diagnostic testing/treatment. discussed with them that rehab will delay obtaining a diagnosis and initiating treatment. They are aware of this and still would like to proceed with rehab. Discussed with her PCP who is also aware of patient wishes. If transportation can be provided from [facility] to mammography facility, this would be ideal. PCP will follow along on this. (3) Shortness of breath: Code(s): R06.02 - Shortness of breath Status: Acute Assessment and Plan: Resolved. Presented after awakening from sleep with shortness of breath. She has had longstanding, untreated sleep apnea and it sounds as though that is what caused her symptoms. Limited chest CTA due to motion however pulmonary embolism is felt to be less likely. No acute exacerbation of COPD. She remained stable on her typical 3 L O2. She does not use CPAP. (4) Chronic respiratory failure with hypoxia, on home oxygen therapy: Code(s): J96.11 - Chronic respiratory failure with hypoxia; Z99.81 - Dependence on supplemental oxygen Status: Acute Assessment and Plan: She remained at her baseline oxygen requirements. Continue albuterol and ipratropium nebulizers p.r.n. (5) Hypomagnesemia: Code(s): E83.42 - Hypomagnesemia Status: Acute Assessment and Plan: Resolved. 1.4 at presentation. Improved with supplementation. Continue to monitor magnesium levels. Continue 400 mg PO Mag-ox daily (6) Type 2 diabetes mellitus: Code(s): E11.9 - Type 2 diabetes mellitus without complications Status: Acute Assessment and Plan: A1c is 6.8. Glucose was slightly elevated during admission. covered with sliding scale insulin and low-dose Lantus during hospital stay. Monitor blood sugar trends at facility and continue sliding scale regimen. (7) Chronic obstructive pulmonary disease: Code(s): J44.9 - Chronic obstructive pulmonary disease, unspecified Status: Acute Assessment and Plan: No acute exacerbation. Continue home respiratory regimen. Nebulizers available as needed. No indication for steroids. (8) Chronic kidney disease: Code(s): N18.9 - Chronic kidney disease, unspecified Status: Acute Assessment and Plan: Baseline appears to be fluctuant from 1.0-1.5. Creatinine was consistent with baseline. (9) Chronic anemia: Code(s): D64.9 - Anemia, unspecified Status: Acute Assessment and Plan: Hemoglobin and hematocrit remained stable on review of previous labs. (10) Abnormal TSH: Code(s): R79.89 - Other specified abnormal findings of blood chemistry Status: Acute Assessment and Plan: TSH is elevated at 13.1. Free T4 is wnl. Total T3 is low. Levothyroxine was uptitrated to 112 mcg. She will need repeat reflex TSH in 4-6 weeks DS: Summary Hospital Course Hospital Course: Date of admission: 09/23/20 Date of discharge: 09/27/20 Del
[2020-09-27 17:33] LABS: Glucose Point of Care 167 mg/dl (65-105)
== END 2020-09-27 18:28 ==
LOC: ANHED 07:42 → ANH3MEDSUR 09:54
PROVIDERS: Emergency Medicine; Physician Assistant; Admitting Provider Family Medicine; Emergency Provider Emergency Medicine; PCP Physician Assistant; Visit Provider Physician Assistant
DX: R53.1 Weakness (principal); N63.20 Unspecified lump in the left breast, unspecified quadrant; J96.11 Chronic respiratory failure with hypoxia; Z99.81 Dependence on supplemental oxygen; E11.9 Type 2 diabetes mellitus without complications; J44.9 Chronic obstructive pulmonary disease, unspecified; R79.89 Other specified abnormal findings of blood chemistry; E87.8 Other disorders of electrolyte and fluid balance, not elsewhere classified; I25.10 Atherosclerotic heart disease of native coronary artery without angina pectoris; G47.30 Sleep apnea, unspecified; I13.0 Hypertensive heart and chronic kidney disease with heart failure and stage 1 through stage 4 chronic kidney disease, or unspecified chronic kidney disease; E11.22 Type 2 diabetes mellitus with diabetic chronic kidney disease; N18.9 Chronic kidney disease, unspecified; I50.9 Heart failure, unspecified; Z79.899 Other long term (current) drug therapy; Z79.4 Long term (current) use of insulin; Z85.3 Personal history of malignant neoplasm of breast; Z87.891 Personal history of nicotine dependence
CPT/HCPCS: 36415; 70450; 71045; 71275; 80048; 80053; 81001; 82948; 83036; 83735; 83880; 84439; 84443; 84480; 84484; 85014; 85018; 85025; 85027; 85610; 85730; 86140; 93005; 94640; 96365; 96366; 96375; 96376; 97110; 97161; 97166; 97530; 97535; 99285; A9270; G0378; J1815; J2405; J3475; Q9967